=== PATIENT | male | born 1970 | race African-American/Black ===

== ENCOUNTER 2018-02-02 10:09 | Inpatient (IN) | payer OTHER ==
[2018-02-02 10:38] VITALS: BMI 25.4
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
[2018-02-02] MEDS ORDERED: P-EPHED 60MG/TRIPROLIDI 2.5MG TABLET PO PRN (15:08)
[2018-02-02] MEDS ORDERED: MAGNESIUM HYDROX 2400MG/30ML ORAL SUSPENSION 30 ML CUP PO PRN (15:08)
[2018-02-02] MEDS ORDERED: LOPERAMIDE HCL 2 MG CAPSULE PO PRN (15:08)
[2018-02-02] MEDS ORDERED: hydrOXYzine PAMOATE 50 MG CAPSULE (FP) PO PRN (15:08)
[2018-02-02] MEDS ORDERED: MAGNESIUM CITRATE 300 ML BOTTLE PO PRN (15:08)
[2018-02-02] MEDS ORDERED: MAG HYDROX/AL HYDROX/SIMETH 30 ML UNIT-DOSE CUP PO PRN (15:08)
[2018-02-02] MEDS ORDERED: MENTHOL/PHENOL 1 EACH UD MM PRN (15:08)
[2018-02-02] MEDS ORDERED: ACETAMINOPHEN 325 MG TABLET (FP) PO PRN (15:08)
[2018-02-02] MEDS ORDERED: chlordiazePOXIDE HCL 25 MG CAPSULE PO PRN (15:08)
[2018-02-02] MEDS ORDERED: guaiFENesin/D-METHORPHAN HB 10 ML UNIT-DOSE CUPS PO PRN (15:08)
[2018-02-02] MEDS ORDERED: NICOTINE POLACRILEX 2 MG GUM BC PRN (15:08)
[2018-02-02] MEDS: chlordiazePOXIDE HCL 25 MG CAPSULE PO SCH ×2 (18:14→22:13)
[2018-02-02] MEDS: NICOTINE 14 MG/24 HOURS TOPICAL PATCH TD SCH (18:17)
[2018-02-02 19:02] LABS: HEMATOCRIT 34.8 % (35.4-49); HEMOGLOBIN 11.2 GM/dL (11.7-16.9); MCHC 32.2 g/dl (32.0-35.9); MEAN CELL VOLUME 80.8 fl (80-96); MEAN PLT VOLUME 8.8 fl (7.5-11.1); PLATELET COUNT 431 K/MM3 (134-434); RDW 20.9 % (11.9-15.9); WHITE BLOOD COUNT 6.8 K/mm3 (4.0-10.0)
[2018-02-02 19:10] LABS: ALBUMIN 3.4 g/dl (3.4-5.0); ANION GAP 8 (8-16); BLOOD UREA NITROGEN 7 mg/dL (7-18); CALCIUM 8.5 mg/dL (8.5-10.1); CHLORIDE 105 mmol/L (98-107); CO2 27 mmol/L (21-32); CREATININE 1.2 mg/dL (0.7-1.3); GLUCOSE,RANDOM 163 mg/dL (74-106); POTASSIUM 4.8 mmol/L (3.5-5.1); SGOT/AST 98 U/L (15-37); SGPT/ALT 58 U/L (12-78); SODIUM 140 mmol/L (136-145)
[2018-02-02 19:17] LABS: ALK PHOS 93 U/L (45-117); BILIRUBIN,TOTAL 0.2 mg/dL (0.2-1.0); TOT PROT 8.9 g/dl (6.4-8.2)
[2018-02-02] MEDS: SILVER SULFADIAZINE 1% TOP CREAM 50 GM JAR TP SCH (20:12)
[2018-02-02 21:46] LABS: SICKLE CELL SCREEN NEGATIVE (NEGATIVE)
[2018-02-02] MEDS ORDERED: MELATONIN 5 MG TABLETS PO PRN (22:00)
[2018-02-02] MEDS: THIAMINE HCL 100 MG TABLET (FP) PO SCH (22:13)
[2018-02-03] MEDS: chlordiazePOXIDE HCL 25 MG CAPSULE PO SCH ×4 (06:41→22:10)
[2018-02-03] MEDS: SILVER SULFADIAZINE 1% TOP CREAM 50 GM JAR TP SCH (10:15)
[2018-02-03] MEDS: PRENATAL VITAMINS W/ FOLIC ACID TABLET (FP) PO SCH (10:15)
[2018-02-03] MEDS: NICOTINE 14 MG/24 HOURS TOPICAL PATCH TD SCH (10:16)
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
--- NOTE | 2018-02-03 12:29 | PN ---
S CIWA - CIWA Score Nausea/Vomitin-No Nausea/No Vomiting Muscle Tremors: 3 Anxiety: 4-Mod. Anxious/Guarded Agitation: 2 Paroxysmal Sweats: 3 Orientation: 0-Oriented Tacttile Disturbances: 2-Mild Itch/Numbness/Burn Auditory Disturbances: 0-None Visual Disturbances: 2-Mild Sensitivity Headache: 0-None Present CIWA-Ar Total Score: 16 BHS Progress Note (SOAP) Subjective: Interrupted Sleep, Anxious, Constipation, Sweating. Objective: PATIENT A & O X 3, OBSERVED AMBULATING ON UNIT. NO ACUTE DISTRESS. 02/03/18 12:26 Vital Signs Temperature 98.4 F 02/03/18 09:17 Pulse Rate 72 02/03/18 11:00 Respiratory Rate 18 02/03/18 11:00 Blood Pressure 124/79 02/03/18 09:17 O2 Sat by Pulse Oximetry (%) Laboratory Tests 02/02/18 02/02/18 15:00 15:00 WBC 6.8 RBC 4.30 Hgb 11.2 L Hct 34.8 L MCV 80.8 MCH 26.0 MCHC 32.2 RDW 20.9 H Plt Count 431 MPV 8.8 Sickle Cell Screen Negative Sodium 140 Potassium 4.8 Chloride 105 Carbon Dioxide 27 Anion Gap 8 BUN 7 Creatinine 1.2 Creat Clearance w eGFR > 60 Random Glucose 163 H Calcium 8.5 Total Bilirubin 0.2 AST 98 H ALT 58 Alkaline Phosphatase 93 Total Protein 8.9 H Albumin 3.4 LABS NOTED. RPR, UA RESULTS PENDING. 02/03/18 12:28 Assessment: 02/03/18 12:28 WITHDRAWAL SYMPTOMS. Plan: CONTINUE DETOX. INCREASE DAILY PO FLUID INTAKE.
--- NOTE | 2018-02-03 14:32 | EKG ---
Test Reason : Blood Pressure : / mmHG Vent. Rate : 057 BPM Atrial Rate : 057 BPM P-R Int : 126 ms QRS Dur : 086 ms QT Int : 422 ms P-R-T Axes : 047 070 072 degrees QTc Int : 410 ms SINUS BRADYCARDIA OTHERWISE NORMAL ECG NO PREVIOUS ECGS AVAILABLE Confirmed by VAMSI OLIVER, NOELLE ([id number]) on 02/03/2018 2:32:39 PM Referred By: Confirmed By:NOELLE AGUSTIN MD
[2018-02-03] MEDS: THIAMINE HCL 100 MG TABLET (FP) PO SCH (22:10)
[2018-02-03] MEDS: IBUPROFEN 400 MG TABLET (FP) PO PRN (22:12)
[2018-02-03] MEDS: ZOLPIDEM TARTRATE 10 MG TABLET (PARK CARE ONLY) PO PRN (22:12)
[2018-02-03 23:43] LABS: URINE APPEARANCE CLEAR; URINE BILIRUBIN NEGATIVE (<2.0 mg/dL); URINE COLOR STRAW; URINE GLUCOSE (UA) NEGATIVE (NEGATIVE); URINE KETONE NEGATIVE (NEGATIVE); URINE NITRITE NEGATIVE (NEGATIVE); URINE PROTEIN NEGATIVE (NEGATIVE); URINE UROBILINOGEN NEGATIVE mg/dL (0.2-1.0)
[2018-02-03 23:44] LABS: URINE LEUK ESTERASE 1+ (NEGATIVE)
[2018-02-04] MEDS: chlordiazePOXIDE HCL 25 MG CAPSULE PO SCH ×2 (05:56→10:44)
[2018-02-04] MEDS: SILVER SULFADIAZINE 1% TOP CREAM 50 GM JAR TP SCH (10:44)
[2018-02-04] MEDS: NICOTINE 14 MG/24 HOURS TOPICAL PATCH TD SCH (10:44)
[2018-02-04] MEDS: PRENATAL VITAMINS W/ FOLIC ACID TABLET (FP) PO SCH (10:44)
--- NOTE | 2018-02-04 10:47 | PN ---
Psychiatric Progress Note Vital Signs: Vital Signs Period Temp Pulse Resp BP Sys/Worthy Pulse Ox Last 24 Hr 96.2 F-97.8 F 57-94 16-20 120-144/67-95 Date of Session: 02/04/18 Chief Complaint:: Insomnia HPI: Patient reports insomnia inspite of taking [id number] po qgs prn. Patient reports good response on Seroquel 100mg po qhs prior to admission Current Medications: Active Medications Generic Name Dose Route Start Last Admin Trade Name Freq PRN Reason Stop Dose Admin Acetaminophen 650 mg 02/02/18 15:08 02/03/18 10:15 Tylenol - PO 650 mg Q4H PRN Administration FEVER Al Hydroxide/Mg Hydroxide 30 ml 02/02/18 15:08 Mylanta Oral Suspension - PO Q6H PRN DYSPEPSIA Chlordiazepoxide HCl 25 mg 02/03/18 17:00 02/04/18 05:56 Librium - PO 02/04/18 11:01 25 mg [id number] IDALMIS Administration Chlordiazepoxide HCl 15 mg 02/04/18 17:00 Librium - PO 02/05/18 11:01 [id number] IDALMIS Chlordiazepoxide HCl 25 mg 02/02/18 15:08 Librium - PO 02/05/18 15:07 Q4H PRN WITHDRAWAL(CONT SUBST) Chlordiazepoxide HCl 10 mg 02/05/18 17:00 Librium - PO 02/06/18 11:01 [id number] IDALMIS Eucalyptus/Menthol/Phenol/Sorbitol 1 each 02/02/18 15:08 Cepastat Lozenge - MM Q4H PRN SORE THROAT Guaifenesin 10 ml 02/02/18 15:08 Robitussin Dm - PO Q6H PRN COUGH Hydroxyzine Pamoate 50 mg 02/02/18 15:08 Vistaril - PO Q4H PRN AGITATION Ibuprofen 400 mg 02/02/18 15:08 02/03/18 22:12 Motrin - PO 400 mg Q6H PRN Administration PAIN LEVEL 4-6 Loperamide HCl 4 mg 02/02/18 15:08 Imodium - PO Q6H PRN DIARRHEA Magnesium Citrate 300 ml 02/02/18 15:08 Citroma - PO Q48H PRN CONSTIPATION Magnesium Hydroxide 30 ml 02/02/18 15:08 Milk Of Magnesia - PO DAILY PRN CONSTIPATION Melatonin 5 mg 02/02/18 22:00 Melatonin PO HS PRN INSOMNIA Nicotine 14 mg 02/02/18 16:30 02/03/18 10:16 Nicoderm Patch - TD 14 mg DAILY IDALMIS Administration Nicotine Polacrilex 2 mg 02/02/18 15:08 Nicorette Gum - BC Q2H PRN NICOTINE REPLACEMENT RX Multivit/Folic Acid/Iron 1 tab 02/03/18 10:00 02/03/18 10:15 Vitamins (Sjr) - PO 1 tab DAILY IDALMIS Administration Pseudoephedrine/Triprolidine 1 combo 02/02/18 15:08 Actifed - PO TID PRN NASAL CONGESTION Quetiapine Fumarate 100 mg 02/04/18 22:00 Seroquel - PO HS IDALMIS Silver Sulfadiazine 1 applic 02/02/18 17:30 02/03/18 10:15 Silvadene - TP 1 applic DAILY IDALMIS Administration Thiamine HCl 100 mg 02/02/18 22:00 02/03/18 22:10 Vitamin B1 - PO 100 mg HS IDALMIS Administration Zolpidem Tartrate 10 mg 02/03/18 22:00 02/03/18 22:12 Ambien - PO 02/06/18 21:59 10 mg HS PRN Administration INSOMNIA Provider note:: Patient started on Seroquel 100mg po qhs Mental Status Exam - Mental Status Exam Alert and Oriented to: Place, Person Cognitive Function: Fair Patient Appearance: Unkempt Mood: Anxious Affect: Mood Congruent Patient Behavior: Cooperative Speech Pattern: Appropriate Voice Loudness: Normal Thought Process: Goal Oriented Thought Disorder: Being Controlled Hallucinations: Denies Suicidal Ideation: Denies Homicidal Ideation: Denies Insight/Judgement: Fair Sleep: Difficulty falling asleep Appetite: Fair Muscle strength/Tone: Normal Gait/Station: Normal Additional Comments: Seroquel 100mg po qhs Psychiatric Treatment Plan - Problem List (1) Alcohol induced insomnia Current Visit: Yes (2) Alcohol dependence with uncomplicated withdrawal Current Visit: Yes (3) Insomnia Current Visit: Yes (4) PCP dependence Current Visit: Yes Initial treatment plan: Seroquel 100mg po qhs
[2018-02-04] MEDS ORDERED: chlordiazePOXIDE HCL 25 MG CAPSULE PO ONE (13:30)
--- NOTE | 2018-02-04 14:23 | PN ---
[facility] CIWA - CIWA Score Nausea/Vomitin-No Nausea/No Vomiting Muscle Tremors: 3 Anxiety: 3 Agitation: 4-Moderately Restless Paroxysmal Sweats: No Perspiration Orientation: 0-Oriented Tacttile Disturbances: 2-Mild Itch/Numbness/Burn Auditory Disturbances: 1-Very Mild Visual Disturbances: 1-Very Mild Sensitivity Headache: 0-None Present CIWA-Ar Total Score: 14 S Progress Note (SOAP) Subjective: Interrupted Sleep, Body Aches, Tremors. Objective: PATIENT A & O X 3, OBSERVED AMBULATING ON UNIT. NO ACUTE DISTRESS. WOUND (CHRONIC) ON PATIENT'S LOWER ABDOMEN VIEWED. NO BLEEDING OR, UNUSUAL DISCHARGE NOTED. 02/04/18 14:20 Vital Signs Temperature 96.1 F L 02/04/18 13:23 Pulse Rate 76 02/04/18 13:23 Respiratory Rate 18 02/04/18 13:23 Blood Pressure 130/70 02/04/18 13:23 O2 Sat by Pulse Oximetry (%) Laboratory Tests 02/02/18 02/02/18 02/02/18 15:00 15:00 15:00 WBC 6.8 RBC 4.30 Hgb 11.2 L Hct 34.8 L MCV 80.8 MCH 26.0 MCHC 32.2 RDW 20.9 H Plt Count 431 MPV 8.8 Sickle Cell Screen Negative Sodium 140 Potassium 4.8 Chloride 105 Carbon Dioxide 27 Anion Gap 8 BUN 7 Creatinine 1.2 Creat Clearance w eGFR > 60 POC Glucometer Random Glucose 163 H Calcium 8.5 Total Bilirubin 0.2 AST 98 H ALT 58 Alkaline Phosphatase 93 Total Protein 8.9 H Albumin 3.4 Urine Color Urine Appearance Urine pH Ur Specific [place] Urine Protein Urine Glucose (UA) Urine Ketones Urine Blood Urine Nitrite Urine Bilirubin Urine Urobilinogen Ur Leukocyte Esterase Urine WBC (Auto) Urine RBC (Auto) RPR Titer Nonreactive 02/02/18 02/04/18 16:00 05:55 WBC RBC Hgb Hct MCV MCH MCHC RDW Plt Count MPV Sickle Cell Screen Sodium Potassium Chloride Carbon Dioxide Anion Gap BUN Creatinine Creat Clearance w eGFR POC Glucometer 97 Random Glucose Calcium Total Bilirubin AST ALT Alkaline Phosphatase Total Protein Albumin Urine Color Straw Urine Appearance Clear Urine pH 5.0 Ur Specific [place] 1.003 Urine Protein Negative Urine Glucose (UA) Negative Urine Ketones Negative Urine Blood Negative Urine Nitrite Negative Urine Bilirubin Negative Urine Urobilinogen Negative Ur Leukocyte Esterase 1+ H Urine WBC (Auto) 2 Urine RBC (Auto) None RPR Titer LABS NOTED. 02/04/18 14:21 Assessment: 02/04/18 14:21 WITHDRAWAL SYMPTOMS. Plan: CONTINUE DETOX. CONTINUE WOUND CARE OF ABDOMEN DIRECTED. INCREASE DAILY PO FLUID INTAKE.
[2018-02-04] MEDS: chlordiazePOXIDE 5 MG CAPSULE PO SCH ×2 (17:21→22:07)
[2018-02-04] MEDS: ZOLPIDEM TARTRATE 10 MG TABLET (PARK CARE ONLY) PO PRN (22:08)
[2018-02-04] MEDS: QUEtiapine FUMARATE 100 MG TABLET (FP) PO SCH (22:08)
[2018-02-04] MEDS: THIAMINE HCL 100 MG TABLET (FP) PO SCH (22:10)
[2018-02-04] MEDS: IBUPROFEN 400 MG TABLET (FP) PO PRN (22:11)
[2018-02-05] MEDS: chlordiazePOXIDE 5 MG CAPSULE PO SCH ×2 (05:32→10:27)
[2018-02-05] MEDS: NICOTINE 14 MG/24 HOURS TOPICAL PATCH TD SCH (10:27)
[2018-02-05] MEDS: PRENATAL VITAMINS W/ FOLIC ACID TABLET (FP) PO SCH (10:27)
[2018-02-05] MEDS: SILVER SULFADIAZINE 1% TOP CREAM 50 GM JAR TP SCH (10:32)
--- NOTE | 2018-02-05 16:45 | PN ---
BHS Progress Note (SOAP) Subjective: Fatigue, Body Aches. Objective: PATIENT A & O X 3, OBSERVED AMBULATING ON UNIT. NO ACUTE DISTRESS. 02/05/18 16:43 Vital Signs Temperature 96.1 F L 02/05/18 13:14 Pulse Rate 69 02/05/18 13:14 Respiratory Rate 18 02/05/18 13:14 Blood Pressure 139/77 02/05/18 13:14 O2 Sat by Pulse Oximetry (%) Laboratory Tests 02/02/18 02/02/18 02/02/18 15:00 15:00 15:00 WBC 6.8 RBC 4.30 Hgb 11.2 L Hct 34.8 L MCV 80.8 MCH 26.0 MCHC 32.2 RDW 20.9 H Plt Count 431 MPV 8.8 Sickle Cell Screen Negative Sodium 140 Potassium 4.8 Chloride 105 Carbon Dioxide 27 Anion Gap 8 BUN 7 Creatinine 1.2 Creat Clearance w eGFR > 60 POC Glucometer Random Glucose 163 H Calcium 8.5 Total Bilirubin 0.2 AST 98 H ALT 58 Alkaline Phosphatase 93 Total Protein 8.9 H Albumin 3.4 Urine Color Urine Appearance Urine pH Ur Specific [place] Urine Protein Urine Glucose (UA) Urine Ketones Urine Blood Urine Nitrite Urine Bilirubin Urine Urobilinogen Ur Leukocyte Esterase Urine WBC (Auto) Urine RBC (Auto) RPR Titer Nonreactive 02/02/18 02/04/18 02/05/18 16:00 05:55 05:35 WBC RBC Hgb Hct MCV MCH MCHC RDW Plt Count MPV Sickle Cell Screen Sodium Potassium Chloride Carbon Dioxide Anion Gap BUN Creatinine Creat Clearance w eGFR POC Glucometer 97 124 Random Glucose Calcium Total Bilirubin AST ALT Alkaline Phosphatase Total Protein Albumin Urine Color Straw Urine Appearance Clear Urine pH 5.0 Ur Specific [place] 1.003 Urine Protein Negative Urine Glucose (UA) Negative Urine Ketones Negative Urine Blood Negative Urine Nitrite Negative Urine Bilirubin Negative Urine Urobilinogen Negative Ur Leukocyte Esterase 1+ H Urine WBC (Auto) 2 Urine RBC (Auto) None RPR Titer LABS NOTED. Assessment: 02/05/18 16:44 WITHDRAWAL SYMPTOMS. Plan: CONTINUE DETOX. PATIENT SCHEDULED FOR D/C TOMORROW.
[2018-02-05] MEDS: chlordiazePOXIDE HCL 10 MG CAPSULE PO SCH ×2 (17:37→22:12)
[2018-02-05] MEDS: IBUPROFEN 400 MG TABLET (FP) PO PRN (17:38)
[2018-02-05] MEDS: ZOLPIDEM TARTRATE 10 MG TABLET (PARK CARE ONLY) PO PRN (22:12)
[2018-02-05] MEDS: QUEtiapine FUMARATE 100 MG TABLET (FP) PO SCH (22:12)
[2018-02-05] MEDS: THIAMINE HCL 100 MG TABLET (FP) PO SCH (22:12)
[2018-02-06] MEDS: chlordiazePOXIDE HCL 10 MG CAPSULE PO SCH ×2 (05:31→10:19)
[2018-02-06] MEDS: IBUPROFEN 400 MG TABLET (FP) PO PRN (05:32)
[2018-02-06 06:08] VITALS: BP 109/68; PULSE 64; TEMP 97.2
[2018-02-06] MEDS: NICOTINE 14 MG/24 HOURS TOPICAL PATCH TD SCH (10:18)
[2018-02-06] MEDS: SILVER SULFADIAZINE 1% TOP CREAM 50 GM JAR TP SCH (10:18)
[2018-02-06] MEDS: PRENATAL VITAMINS W/ FOLIC ACID TABLET (FP) PO SCH (10:18)
--- NOTE | 2018-02-06 17:16 | PN ---
BHS Progress Note (SOAP) Subjective: Patient denies current Detox symptoms and reports that he feels well overall. Objective: PATIENT A & O X 3, OBSERVED AMBULATING ON UNIT. NO ACUTE DISTRESS. 02/06/18 17:15 Vital Signs Temperature 97.2 F L 02/06/18 06:07 Pulse Rate 64 02/06/18 06:07 Respiratory Rate 20 02/06/18 06:07 Blood Pressure 109/68 02/06/18 06:07 O2 Sat by Pulse Oximetry (%) Laboratory Tests 02/02/18 02/02/18 02/02/18 15:00 15:00 15:00 WBC 6.8 RBC 4.30 Hgb 11.2 L Hct 34.8 L MCV 80.8 MCH 26.0 MCHC 32.2 RDW 20.9 H Plt Count 431 MPV 8.8 Sickle Cell Screen Negative Sodium 140 Potassium 4.8 Chloride 105 Carbon Dioxide 27 Anion Gap 8 BUN 7 Creatinine 1.2 Creat Clearance w eGFR > 60 POC Glucometer Random Glucose 163 H Calcium 8.5 Total Bilirubin 0.2 AST 98 H ALT 58 Alkaline Phosphatase 93 Total Protein 8.9 H Albumin 3.4 Urine Color Urine Appearance Urine pH Ur Specific [place] Urine Protein Urine Glucose (UA) Urine Ketones Urine Blood Urine Nitrite Urine Bilirubin Urine Urobilinogen Ur Leukocyte Esterase Urine WBC (Auto) Urine RBC (Auto) RPR Titer Nonreactive 02/02/18 02/04/18 02/05/18 16:00 05:55 05:35 WBC RBC Hgb Hct MCV MCH MCHC RDW Plt Count MPV Sickle Cell Screen Sodium Potassium Chloride Carbon Dioxide Anion Gap BUN Creatinine Creat Clearance w eGFR POC Glucometer 97 124 Random Glucose Calcium Total Bilirubin AST ALT Alkaline Phosphatase Total Protein Albumin Urine Color Straw Urine Appearance Clear Urine pH 5.0 Ur Specific [place] 1.003 Urine Protein Negative Urine Glucose (UA) Negative Urine Ketones Negative Urine Blood Negative Urine Nitrite Negative Urine Bilirubin Negative Urine Urobilinogen Negative Ur Leukocyte Esterase 1+ H Urine WBC (Auto) 2 Urine RBC (Auto) None RPR Titer 02/06/18 05:49 WBC RBC Hgb Hct MCV MCH MCHC RDW Plt Count MPV Sickle Cell Screen Sodium Potassium Chloride Carbon Dioxide Anion Gap BUN Creatinine Creat Clearance w eGFR POC Glucometer 108 Random Glucose Calcium Total Bilirubin AST ALT Alkaline Phosphatase Total Protein Albumin Urine Color Urine Appearance Urine pH Ur Specific [place] Urine Protein Urine Glucose (UA) Urine Ketones Urine Blood Urine Nitrite Urine Bilirubin Urine Urobilinogen Ur Leukocyte Esterase Urine WBC (Auto) Urine RBC (Auto) RPR Titer LABS NOTED. Assessment: 02/06/18 17:16 COMPLETION OF DETOX REGIMEN. Plan: PATIENT SCHEDULED FOR DISCHARGE FROM DETOX UNIT TODAY.
--- NOTE | 2018-02-06 17:19 | DS ---
[facility] Detox Discharge Summary Admission Date: 02/02/18 Discharge Date: 02/06/18 - History Present History: Alcohol Dependence, Pcp Dependence Additional Comments: PATIENT [id number] TO [facility] ([place] FOR AFTERCARE. PATIENT WAS DISCHARGED FROM DETOX UNIT IN STABLE MEDICAL CONDITION. Pertinent Past History: Open Abdominal Wall Wound, History of Umbilical Hernia, Insomnia. - Physical Exam Results Vital Signs: Vital Signs Temperature 97.2 F L 02/06/18 06:07 Pulse Rate 64 02/06/18 06:07 Respiratory Rate 20 02/06/18 06:07 Blood Pressure 109/68 02/06/18 06:07 O2 Sat by Pulse Oximetry (%) Pertinent Admission Physical Exam Findings: WITHDRAWAL SYMPTOMS. Laboratory Tests 02/02/18 02/02/18 02/02/18 15:00 15:00 15:00 WBC 6.8 RBC 4.30 Hgb 11.2 L Hct 34.8 L MCV 80.8 MCH 26.0 MCHC 32.2 RDW 20.9 H Plt Count 431 MPV 8.8 Sickle Cell Screen Negative Sodium 140 Potassium 4.8 Chloride 105 Carbon Dioxide 27 Anion Gap 8 BUN 7 Creatinine 1.2 Creat Clearance w eGFR > 60 POC Glucometer Random Glucose 163 H Calcium 8.5 Total Bilirubin 0.2 AST 98 H ALT 58 Alkaline Phosphatase 93 Total Protein 8.9 H Albumin 3.4 Urine Color Urine Appearance Urine pH Ur Specific [place] Urine Protein Urine Glucose (UA) Urine Ketones Urine Blood Urine Nitrite Urine Bilirubin Urine Urobilinogen Ur Leukocyte Esterase Urine WBC (Auto) Urine RBC (Auto) RPR Titer Nonreactive 02/02/18 02/04/18 02/05/18 16:00 05:55 05:35 WBC RBC Hgb Hct MCV MCH MCHC RDW Plt Count MPV Sickle Cell Screen Sodium Potassium Chloride Carbon Dioxide Anion Gap BUN Creatinine Creat Clearance w eGFR POC Glucometer 97 124 Random Glucose Calcium Total Bilirubin AST ALT Alkaline Phosphatase Total Protein Albumin Urine Color Straw Urine Appearance Clear Urine pH 5.0 Ur Specific [place] 1.003 Urine Protein Negative Urine Glucose (UA) Negative Urine Ketones Negative Urine Blood Negative Urine Nitrite Negative Urine Bilirubin Negative Urine Urobilinogen Negative Ur Leukocyte Esterase 1+ H Urine WBC (Auto) 2 Urine RBC (Auto) None RPR Titer 02/06/18 05:49 WBC RBC Hgb Hct MCV MCH MCHC RDW Plt Count MPV Sickle Cell Screen Sodium Potassium Chloride Carbon Dioxide Anion Gap BUN Creatinine Creat Clearance w eGFR POC Glucometer 108 Random Glucose Calcium Total Bilirubin AST ALT Alkaline Phosphatase Total Protein Albumin Urine Color Urine Appearance Urine pH Ur Specific [place] Urine Protein Urine Glucose (UA) Urine Ketones Urine Blood Urine Nitrite Urine Bilirubin Urine Urobilinogen Ur Leukocyte Esterase Urine WBC (Auto) Urine RBC (Auto) RPR Titer LABS NOTED. - Treatment Hospital Course: Detox Protocol Followed, Detoxed Safely, Responded well, Discharged Condition Good Patient has Accepted a Rehab Referral to: PT. [facility] ([place] - Medication Discharge Medications: Ambulatory Orders Quetiapine Fumarate [Seroquel] 100 mg PO HS #30 tablet 02/04/18 - Diagnosis (1) Alcohol dependence with uncomplicated withdrawal Status: Acute (2) PCP dependence Status: Acute (3) Open abdominal wall wound Status: Chronic Qualifiers: Encounter type: sequela Qualified Code(s): S31.109S - Unspecified open wound of abdominal wall, unspecified quadrant without penetration into peritoneal cavity, sequela (4) Umbilical hernia Status: Chronic Qualifiers: Obstruction and gangrene presence: without obstruction or gangrene Qualified Code(s): K42.9 - Umbilical hernia without obstruction or gangrene (5) Insomnia Status: Acute Qualifiers: Insomnia type: unspecified Qualified Code(s): G47.00 - Insomnia, unspecified - AMA Did Patient Leave Against Medical Advice: No
== END 2018-02-06 09:10 | disposition home or self-care (01) | DRG 775 ==
LOC: YASAS 10:09 → Y3N 16:03
PROVIDERS: ADMIT Internal Medicine; ATTEND Internal Medicine
PROC: HZ2ZZZZ Detoxification Services for Substance Abuse Treatment (ICD-10-PCS; principal; 2018-02-02)
DX: F10.230 Alcohol dependence with withdrawal, uncomplicated (principal); F16.20 Hallucinogen dependence, uncomplicated; F10.282 Alcohol dependence with alcohol-induced sleep disorder; G47.00 Insomnia, unspecified; K42.9 Umbilical hernia without obstruction or gangrene; I10 Essential (primary) hypertension; S31.109S Unspecified open wound of abdominal wall, unspecified quadrant without penetration into peritoneal cavity, sequela; V89.2XXS Person injured in unspecified motor-vehicle accident, traffic, sequela
CPT/HCPCS: 36415; 80053; 81003; 81015; 82962; 85027; 85660; 86593; 93005; 93010

== ENCOUNTER 2018-03-29 15:27 | Inpatient (IN) | payer OTHER ==
--- NOTE | 2018-03-29 16:50 | PN ---
[facility] Progress Note Note: Admitted to rehab after discharge from [facility] detox. Alert and oriented. Denies withdrawal symptoms. Abdomen has three soft, non-tender, reducible hernia areas. At the intersecting areas of the hernias is a mid-abdominal lesion approximated 2.5" vertical by 1.5" horizontal. Lesion is open w/ pink granulation tissue on outer edges and dry darker pink scab-like inner center. No exudate. Will continue silvadene cream to lesion and dry dressings. Admission rehab orders and bactrim order completed.
[2018-03-29] MEDS ORDERED: NICOTINE POLACRILEX 2 MG GUM BUC PRN (16:52)
[2018-03-29] MEDS ORDERED: P-EPHED 60MG/TRIPROLIDI 2.5MG TABLET PO PRN (16:52)
[2018-03-29] MEDS ORDERED: guaiFENesin/D-METHORPHAN HB 10 ML UNIT-DOSE CUPS PO PRN (16:52)
[2018-03-29] MEDS ORDERED: MENTHOL/PHENOL 1 EACH UD MM PRN (16:52)
[2018-03-29] MEDS ORDERED: MAGNESIUM CITRATE 300 ML BOTTLE PO PRN (16:52)
[2018-03-29] MEDS ORDERED: MAGNESIUM HYDROX 2400MG/30ML ORAL SUSPENSION 30 ML CUP PO PRN (16:52)
[2018-03-29] MEDS ORDERED: ACETAMINOPHEN 325 MG TABLET (FP) PO PRN (16:52)
[2018-03-29] MEDS ORDERED: MAG HYDROX/AL HYDROX/SIMETH 30 ML UNIT-DOSE CUP PO PRN (16:52)
[2018-03-29] MEDS ORDERED: LOPERAMIDE HCL 2 MG CAPSULE PO PRN (16:52)
--- NOTE | 2018-03-29 17:13 | PN ---
[facility] Progress Note Note: Psychiatry Attending's note : Called to enter order for seroquel. For Gumaro Parkinson, 47 y/o male. Transferred from [address] [place] [address]. Chart reviewed. Notes from ANITRA Quinn + Dr Shepard : Read and appreciated.Seroquel is confirmed. Continuity of care with : Seroquel 100 mg po hs.Ordered. Unit psychiatrist will follow in AM.
[2018-03-29 20:36] VITALS: BMI 24.8
[2018-03-29] MEDS: THIAMINE HCL 100 MG TABLET (FP) PO SCH (21:16)
[2018-03-29] MEDS: IBUPROFEN 400 MG TABLET (FP) PO PRN (21:17)
[2018-03-29] MEDS: SULFAMETHOXAZOLE/TRIMETHOPRIM 800MG/160MG D.S. TABLET PO SCH (21:17)
[2018-03-29] MEDS: SILVER SULFADIAZINE 1% TOP CREAM 400 GM JAR TP SCH (21:18)
[2018-03-29] MEDS ORDERED: QUEtiapine FUMARATE 100 MG TABLET (FP) PO SCH (22:00)
[2018-03-29] MEDS ORDERED: cloNIDine HCL 0.1 MG TABLET PO ONE (22:21)
--- NOTE | 2018-03-29 22:23 | PN ---
S Progress Note Note: Vital Signs - 24 hr 03/29/18 22:01 Pulse Rate 78 Blood Pressure 156/106 Patient with elevated diastolic BP, and c/o back pain. one time dose clonidine 0.1 mg stat felxeril PRN continue Ibuprofen PRN increase fluids continue to monitor
[2018-03-29] MEDS: CYCLOBENZAPRINE HCL 5 MG TABLET PO SCH (22:42)
[2018-03-30] MEDS: CYCLOBENZAPRINE HCL 5 MG TABLET PO SCH ×3 (06:21→21:37)
[2018-03-30] MEDS: PRENATAL VITAMINS W/ FOLIC ACID TABLET (FP) PO SCH (10:43)
[2018-03-30] MEDS: SULFAMETHOXAZOLE/TRIMETHOPRIM 800MG/160MG D.S. TABLET PO SCH ×2 (10:43→21:37)
[2018-03-30] MEDS: SILVER SULFADIAZINE 1% TOP CREAM 400 GM JAR TP SCH ×2 (10:43→21:40)
[2018-03-30] MEDS: NICOTINE 7 MG/24 HOURS TOPICAL PATCH TD SCH (10:43)
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
[2018-03-30] MEDS: THIAMINE HCL 100 MG TABLET (FP) PO SCH (21:37)
[2018-03-30] MEDS: QUEtiapine FUMARATE 200 MG TABLET PO SCH (21:38)
[2018-03-30] MEDS: IBUPROFEN 400 MG TABLET (FP) PO PRN (21:38)
[2018-03-31] MEDS: CYCLOBENZAPRINE HCL 5 MG TABLET PO SCH ×3 (06:51→21:41)
[2018-03-31] MEDS: IBUPROFEN 400 MG TABLET (FP) PO PRN ×2 (06:53→21:43)
[2018-03-31] MEDS: SILVER SULFADIAZINE 1% TOP CREAM 400 GM JAR TP SCH ×2 (10:37→21:44)
[2018-03-31] MEDS: PRENATAL VITAMINS W/ FOLIC ACID TABLET (FP) PO SCH (10:37)
[2018-03-31] MEDS: NICOTINE 7 MG/24 HOURS TOPICAL PATCH TD SCH (10:37)
[2018-03-31] MEDS: SULFAMETHOXAZOLE/TRIMETHOPRIM 800MG/160MG D.S. TABLET PO SCH ×2 (10:37→21:41)
[2018-03-31] MEDS: THIAMINE HCL 100 MG TABLET (FP) PO SCH (21:41)
[2018-03-31] MEDS: QUEtiapine FUMARATE 200 MG TABLET PO SCH (21:41)
[2018-03-31] MEDS: hydrOXYzine PAMOATE 50 MG CAPSULE (FP) PO PRN (21:43)
[2018-04-01] MEDS: CYCLOBENZAPRINE HCL 5 MG TABLET PO SCH ×3 (06:17→21:45)
[2018-04-01] MEDS: NICOTINE 7 MG/24 HOURS TOPICAL PATCH TD SCH (10:37)
[2018-04-01] MEDS: SULFAMETHOXAZOLE/TRIMETHOPRIM 800MG/160MG D.S. TABLET PO SCH ×2 (10:37→21:45)
[2018-04-01] MEDS: SILVER SULFADIAZINE 1% TOP CREAM 400 GM JAR TP SCH ×2 (10:38→21:46)
[2018-04-01] MEDS: PRENATAL VITAMINS W/ FOLIC ACID TABLET (FP) PO SCH (10:38)
[2018-04-01] MEDS: hydrOXYzine PAMOATE 50 MG CAPSULE (FP) PO PRN (10:39)
[2018-04-01] MEDS: QUEtiapine FUMARATE 200 MG TABLET PO SCH (21:45)
[2018-04-01] MEDS: THIAMINE HCL 100 MG TABLET (FP) PO SCH (21:45)
[2018-04-01] MEDS: MELATONIN 5 MG TABLETS PO PRN (21:46)
[2018-04-02] MEDS: CYCLOBENZAPRINE HCL 5 MG TABLET PO SCH ×3 (06:37→21:52)
[2018-04-02] MEDS: SULFAMETHOXAZOLE/TRIMETHOPRIM 800MG/160MG D.S. TABLET PO SCH ×2 (10:34→21:52)
[2018-04-02] MEDS: PRENATAL VITAMINS W/ FOLIC ACID TABLET (FP) PO SCH (10:34)
[2018-04-02] MEDS: NICOTINE 7 MG/24 HOURS TOPICAL PATCH TD SCH (10:34)
[2018-04-02] MEDS: SILVER SULFADIAZINE 1% TOP CREAM 400 GM JAR TP SCH ×2 (10:34→21:53)
[2018-04-02] MEDS: QUEtiapine FUMARATE 200 MG TABLET PO SCH (21:52)
[2018-04-02] MEDS: THIAMINE HCL 100 MG TABLET (FP) PO SCH (21:52)
[2018-04-02] MEDS: hydrOXYzine PAMOATE 50 MG CAPSULE (FP) PO PRN (21:54)
[2018-04-02] MEDS: MELATONIN 5 MG TABLETS PO PRN (21:54)
[2018-04-03] MEDS: CYCLOBENZAPRINE HCL 5 MG TABLET PO SCH ×3 (06:36→21:55)
[2018-04-03] MEDS: NICOTINE 7 MG/24 HOURS TOPICAL PATCH TD SCH (10:32)
[2018-04-03] MEDS: SULFAMETHOXAZOLE/TRIMETHOPRIM 800MG/160MG D.S. TABLET PO SCH ×2 (10:32→21:54)
[2018-04-03] MEDS: PRENATAL VITAMINS W/ FOLIC ACID TABLET (FP) PO SCH (10:32)
[2018-04-03] MEDS: SILVER SULFADIAZINE 1% TOP CREAM 400 GM JAR TP SCH ×2 (10:33→22:11)
[2018-04-03] MEDS: THIAMINE HCL 100 MG TABLET (FP) PO SCH (21:54)
[2018-04-03] MEDS: QUEtiapine FUMARATE 200 MG TABLET PO SCH (21:54)
[2018-04-03] MEDS: MELATONIN 5 MG TABLETS PO PRN (21:56)
[2018-04-04] MEDS: CYCLOBENZAPRINE HCL 5 MG TABLET PO SCH ×3 (06:28→21:40)
[2018-04-04] MEDS: NICOTINE 7 MG/24 HOURS TOPICAL PATCH TD SCH (10:29)
[2018-04-04] MEDS: SULFAMETHOXAZOLE/TRIMETHOPRIM 800MG/160MG D.S. TABLET PO SCH ×2 (10:29→21:40)
[2018-04-04] MEDS: PRENATAL VITAMINS W/ FOLIC ACID TABLET (FP) PO SCH (10:29)
[2018-04-04] MEDS: SILVER SULFADIAZINE 1% TOP CREAM 400 GM JAR TP SCH ×2 (10:30→22:41)
[2018-04-04] MEDS: THIAMINE HCL 100 MG TABLET (FP) PO SCH (21:40)
[2018-04-04] MEDS: QUEtiapine FUMARATE 200 MG TABLET PO SCH (21:40)
[2018-04-05] MEDS: CYCLOBENZAPRINE HCL 5 MG TABLET PO SCH ×3 (06:52→21:43)
[2018-04-05] MEDS: SULFAMETHOXAZOLE/TRIMETHOPRIM 800MG/160MG D.S. TABLET PO SCH ×2 (10:18→21:43)
[2018-04-05] MEDS: NICOTINE 7 MG/24 HOURS TOPICAL PATCH TD SCH (10:18)
[2018-04-05] MEDS: PRENATAL VITAMINS W/ FOLIC ACID TABLET (FP) PO SCH (10:18)
[2018-04-05] MEDS: SILVER SULFADIAZINE 1% TOP CREAM 400 GM JAR TP SCH ×2 (10:19→21:45)
[2018-04-05] MEDS: QUEtiapine FUMARATE 200 MG TABLET PO SCH (21:43)
[2018-04-05] MEDS: THIAMINE HCL 100 MG TABLET (FP) PO SCH (21:43)
[2018-04-05] MEDS: MELATONIN 5 MG TABLETS PO PRN (21:43)
[2018-04-05] MEDS: IBUPROFEN 400 MG TABLET (FP) PO PRN (21:46)
[2018-04-06] MEDS: CYCLOBENZAPRINE HCL 5 MG TABLET PO SCH ×3 (06:44→21:46)
[2018-04-06] MEDS: PRENATAL VITAMINS W/ FOLIC ACID TABLET (FP) PO SCH (10:34)
[2018-04-06] MEDS: SILVER SULFADIAZINE 1% TOP CREAM 400 GM JAR TP SCH ×2 (10:34→21:47)
[2018-04-06] MEDS: NICOTINE 7 MG/24 HOURS TOPICAL PATCH TD SCH (10:35)
[2018-04-06] MEDS: SULFAMETHOXAZOLE/TRIMETHOPRIM 800MG/160MG D.S. TABLET PO SCH ×2 (10:35→21:46)
[2018-04-06] MEDS: THIAMINE HCL 100 MG TABLET (FP) PO SCH (21:46)
[2018-04-06] MEDS: QUEtiapine FUMARATE 200 MG TABLET PO SCH (21:46)
[2018-04-06] MEDS: MELATONIN 5 MG TABLETS PO PRN (21:46)
[2018-04-07] MEDS: CYCLOBENZAPRINE HCL 5 MG TABLET PO SCH ×3 (06:38→21:58)
[2018-04-07 07:24] VITALS: TEMP 97.7
[2018-04-07] MEDS: SILVER SULFADIAZINE 1% TOP CREAM 400 GM JAR TP SCH ×2 (10:25→22:04)
[2018-04-07] MEDS: SULFAMETHOXAZOLE/TRIMETHOPRIM 800MG/160MG D.S. TABLET PO SCH ×2 (10:25→21:58)
[2018-04-07] MEDS: NICOTINE 7 MG/24 HOURS TOPICAL PATCH TD SCH (10:26)
[2018-04-07] MEDS: PRENATAL VITAMINS W/ FOLIC ACID TABLET (FP) PO SCH (10:26)
--- NOTE | 2018-04-07 13:54 | PN ---
Psychiatric Progress Note Vital Signs: Vital Signs Period Temp Pulse Resp BP Sys/Worthy Pulse Ox Last 24 Hr 97.7 F 88 18-18 121/92 Date of Session: 04/07/18 Chief Complaint:: Discharge Note HPI: Patient addressing Alcohol and Phencyclidine Dependence comorbid with Nicotine Dependence, Substance-Induced Mood Disorder and Substance-Induced Sleep Disorder ROS: Blindness left eye, Umbilical Hernia Current Medications: Active Medications Generic Name Dose Route Start Last Admin Trade Name Freq PRN Reason Stop Dose Admin Acetaminophen 650 mg 03/29/18 16:52 Tylenol - PO Q4H PRN FEVER Al Hydroxide/Mg Hydroxide 30 ml 03/29/18 16:52 Mylanta Oral Suspension - PO Q6H PRN DYSPEPSIA Cyclobenzaprine HCl 5 mg 03/29/18 22:30 04/07/18 06:38 Cyclobenzaprine Hcl PO 5 mg TID IDALMIS Administration Eucalyptus/Menthol/Phenol/Sorbitol 1 each 03/29/18 16:52 Cepastat Lozenge - MM Q4H PRN SORE THROAT Guaifenesin 10 ml 03/29/18 16:52 Robitussin Dm - PO Q6H PRN COUGH Hydroxyzine Pamoate 50 mg 03/29/18 16:52 04/02/18 21:54 Vistaril - PO 50 mg Q4H PRN Administration AGITATION Ibuprofen 400 mg 03/29/18 16:52 04/05/18 21:46 Motrin - PO 400 mg Q6H PRN Administration Pain Level 4-6 Loperamide HCl 4 mg 03/29/18 16:52 Imodium - PO Q6H PRN DIARRHEA Magnesium Citrate 300 ml 03/29/18 16:52 Citroma - PO Q48H PRN CONSTIPATION Magnesium Hydroxide 30 ml 03/29/18 16:52 Milk Of Magnesia - PO DAILY PRN CONSTIPATION Melatonin 5 mg 03/29/18 22:00 04/06/18 21:46 Melatonin PO 5 mg HS PRN Administration INSOMNIA Nicotine 7 mg 03/30/18 10:00 04/07/18 10:26 Nicoderm Patch - TD 7 mg DAILY IDALMIS Administration Nicotine Polacrilex 2 mg 03/29/18 16:52 Nicorette Gum - BUC Q2H PRN NICOTINE REPLACEMENT RX Multivit/Folic Acid/Iron 1 tab 03/30/18 10:00 04/07/18 10:26 Vitamins (Sjr) - PO 1 tab DAILY IDALMIS Administration Pseudoephedrine/Triprolidine 1 combo 03/29/18 16:52 Actifed - PO TID PRN NASAL CONGESTION Quetiapine Fumarate 200 mg 03/30/18 22:00 04/06/18 21:46 Seroquel - PO 200 mg HS IDALMIS Administration Silver Sulfadiazine 1 applic 03/29/18 22:00 04/07/18 10:25 Silvadene - TP 1 applic BID IDALMIS Administration Thiamine HCl 100 mg 03/29/18 22:00 04/06/18 21:46 Vitamin B1 - PO 100 mg HS IDALMIS Administration Trimethoprim/Sulfamethoxazole 1 each 03/29/18 22:00 04/07/18 10:25 Bactrim Ds - PO 1 each BID IDALMIS Administration Current Side Effect: No Lab tests ordered: Yes Lab tests reviewed: Yes Provider note:: Patient will complete this program on 04/08/18. He has met his treatment goals and will continue to address his issues in outpatient treatment at [facility]. Told advertising copywriter that from his participation in this program, he has learned to focus on himself, be compliant to his outpatient program and to stay away from people, places and things. He responded well to Seroquel 200 mg po HS. Script for 30 days supply of medication will be electronically transmitted to [facility] at [address] [place] [address]. He is stable for discharge on 04/08/18 Total face to face time:: 35 Psychiatric Treatment Plan - Problem List (1) Alcohol dependence Current Visit: Yes (2) Phencyclidine dependence Current Visit: Yes (3) Nicotine dependence Current Visit: Yes (4) Substance induced mood disorder Current Visit: Yes (5) Substance-induced sleep disorder Current Visit: Yes (6) Blind left eye Current Visit: No (7) Umbilical hernia Current Visit: No Qualifiers: Obstruction and gangrene presence: without obstruction or gangrene Qualified Code(s): K42.9 - Umbilical hernia without obstruction or gangrene Initial treatment plan: Patient will be discharged tomorrow and referred to [facility] for outpatient program
[2018-04-07] MEDS: QUEtiapine FUMARATE 200 MG TABLET PO SCH (21:58)
[2018-04-07] MEDS: THIAMINE HCL 100 MG TABLET (FP) PO SCH (21:58)
[2018-04-07] MEDS: MELATONIN 5 MG TABLETS PO PRN (21:59)
[2018-04-08] MEDS: IBUPROFEN 400 MG TABLET (FP) PO PRN (06:27)
[2018-04-08] MEDS: CYCLOBENZAPRINE HCL 5 MG TABLET PO SCH (06:28)
[2018-04-08 07:28] VITALS: BP 132/88; PULSE 77
[2018-04-08] MEDS: SULFAMETHOXAZOLE/TRIMETHOPRIM 800MG/160MG D.S. TABLET PO SCH (10:40)
[2018-04-08] MEDS: NICOTINE 7 MG/24 HOURS TOPICAL PATCH TD SCH (10:40)
[2018-04-08] MEDS: PRENATAL VITAMINS W/ FOLIC ACID TABLET (FP) PO SCH (10:40)
[2018-04-08] MEDS: SILVER SULFADIAZINE 1% TOP CREAM 400 GM JAR TP SCH (10:40)
== END 2018-04-08 11:15 | disposition home or self-care (01) | DRG 772 ==
LOC: YASAS 15:27 → Y5N 15:28
PROVIDERS: ADMIT Psychiatry & Neurology Psychiatry; ATTEND Psychiatry & Neurology Psychiatry
PROC: HZ42ZZZ Group Counseling for Substance Abuse Treatment, Cognitive-Behavioral (ICD-10-PCS; principal; 2018-03-29)
DX: F10.20 Alcohol dependence, uncomplicated (principal); F16.20 Hallucinogen dependence, uncomplicated; F17.210 Nicotine dependence, cigarettes, uncomplicated; F19.24 Other psychoactive substance dependence with psychoactive substance-induced mood disorder; G47.00 Insomnia, unspecified; H54.40 Blindness, one eye, unspecified eye; K42.9 Umbilical hernia without obstruction or gangrene
CPT/HCPCS: J0735

== ENCOUNTER 2019-04-01 15:25 | Inpatient (IN) | payer OTHER ==
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
[2019-04-01] MEDS ORDERED: hydrOXYzine PAMOATE 25 MG CAPSULE (FP) PO PRN (20:40)
[2019-04-01] MEDS ORDERED: chlordiazePOXIDE HCL 25 MG CAPSULE PO PRN (20:40)
[2019-04-01] MEDS ORDERED: MAG HYDROX/AL HYDROX/SIMETH 30 ML UNIT-DOSE CUP PO PRN (20:40)
[2019-04-01] MEDS ORDERED: MAGNESIUM CITRATE 300 ML BOTTLE PO PRN (20:40)
[2019-04-01] MEDS ORDERED: MENTHOL/PHENOL 1 EACH UD MM PRN (20:40)
[2019-04-01] MEDS ORDERED: ACETAMINOPHEN 325 MG TABLET (FP) PO PRN ×2 (20:40)
[2019-04-01] MEDS ORDERED: BISMUTH SUBSALICYLATE 524 MG/30 ML UD PO PRN (20:40)
[2019-04-01] MEDS ORDERED: NICOTINE POLACRILEX 2 MG GUM BUC PRN (20:40)
[2019-04-01] MEDS ORDERED: MELATONIN 5 MG TABLETS PO PRN (20:40)
[2019-04-01] MEDS ORDERED: MAGNESIUM HYDROX 2400MG/30ML ORAL SUSPENSION 30 ML CUP PO PRN (20:40)
[2019-04-01] MEDS: chlordiazePOXIDE HCL 25 MG CAPSULE PO SCH (22:29)
[2019-04-01] MEDS: THIAMINE HCL 100 MG TABLET (FP) PO SCH (22:36)
[2019-04-02] MEDS: chlordiazePOXIDE HCL 25 MG CAPSULE PO SCH ×4 (06:53→23:00)
--- NOTE | 2019-04-02 10:07 | PN ---
S CIWA - CIWA Score Nausea/Vomitin-No Nausea/No Vomiting Muscle Tremors: 2 Anxiety: 3 Agitation: 2 Paroxysmal Sweats: 3 Orientation: 0-Oriented Tacttile Disturbances: 1-Very Mild Itch/Numbness Auditory Disturbances: 0-None Visual Disturbances: 0-None Headache: 0-None Present CIWA-Ar Total Score: 11 [facility] Progress Note (SOAP) Subjective: c/o sweats, shakes, and anxiety. Objective: 04/02/19 10:06 Vital Signs 04/02/19 04/02/19 07:29 09:43 Temperature 97.7 F 97.1 F L Pulse Rate 60 68 Respiratory 18 16 Rate Blood Pressure 135/87 111/59 L Labs pending. Assessment: 04/02/19 10:06 AOX3, in no acute distress. Full ROM, ambulating in the unit. withdrawal symptoms. Plan: continue detox.
[2019-04-02] MEDS: PRENATAL VITAMINS W/ FOLIC ACID TABLET (FP) PO SCH (10:10)
[2019-04-02] MEDS: NICOTINE 14 MG/24 HOURS TOPICAL PATCH TD SCH (10:11)
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
[2019-04-02 15:17] LABS: ALBUMIN 2.8 g/dl (3.4-5.0); BILIRUBIN,TOTAL 0.5 mg/dL (0.2-1); BLOOD UREA NITROGEN 12.2 mg/dL (7-18); CALCIUM 8.1 mg/dL (8.5-10.1); POTASSIUM 4.3 mmol/L (3.5-5.1); TOT PROT 7.2 g/dl (6.4-8.2)
[2019-04-02 15:25] LABS: HEMATOCRIT 26.5 % (35.4-49); HEMOGLOBIN 8.6 GM/dL (11.7-16.9); MCH 22.8 pg (25.7-33.7); MCHC 32.4 g/dl (32.0-35.9); MEAN CELL VOLUME 70.6 fl (80-96); MEAN PLT VOLUME 8.4 fl (7.5-11.1); PLATELET COUNT 397 K/MM3 (134-434); RBC 3.76 M/mm3 (4.00-5.60); RDW 21.9 % (11.9-15.9); WHITE BLOOD COUNT 6.8 K/mm3 (4.0-10.0)
[2019-04-02] MEDS: QUEtiapine FUMARATE 200 MG TABLET PO SCH (23:01)
[2019-04-02] MEDS: THIAMINE HCL 100 MG TABLET (FP) PO SCH (23:01)
[2019-04-02] MEDS: IBUPROFEN 400 MG TABLET (FP) PO PRN (23:03)
[2019-04-03] MEDS: chlordiazePOXIDE HCL 25 MG CAPSULE PO SCH ×4 (05:52→22:24)
[2019-04-03] MEDS: IBUPROFEN 400 MG TABLET (FP) PO PRN ×2 (05:53→17:57)
[2019-04-03] MEDS: METHOCARBAMOL 500 MG TABLET PO PRN ×2 (10:49→22:27)
[2019-04-03] MEDS: NICOTINE 14 MG/24 HOURS TOPICAL PATCH TD SCH (10:49)
[2019-04-03] MEDS: PRENATAL VITAMINS W/ FOLIC ACID TABLET (FP) PO SCH (10:49)
--- NOTE | 2019-04-03 11:25 | PN ---
S CIWA - CIWA Score Nausea/Vomitin Muscle Tremors: None Anxiety: 0-No Anxiety, at Ease Agitation: 0-Normal Activity Paroxysmal Sweats: 3 Orientation: 0-Oriented Tacttile Disturbances: 2-Mild Itch/Numbness/Burn Auditory Disturbances: 0-None Visual Disturbances: 0-None Headache: 2-Mild CIWA-Ar Total Score: 9 BHS Progress Note (SOAP) Subjective: PATIENT C/O MILD HEADACHE, INTERMITTENT NAUSEA, CHILLS. Objective: 04/03/19 11:23 Laboratory Tests 04/02/19 04/02/19 04/02/19 09:45 09:45 09:45 WBC 6.8 RBC 3.76 L Hgb 8.6 L Hct 26.5 L D MCV 70.6 L MCH 22.8 L MCHC 32.4 RDW 21.9 H Plt Count 397 D MPV 8.4 D Sodium 140 Potassium 4.3 Chloride 107 Carbon Dioxide 29 Anion Gap 4 L BUN 12.2 Creatinine 1.0 Est GFR (CKD-EPI)AfAm 101.26 Est GFR (CKD-EPI)NonAf 87.37 Random Glucose 112 H Calcium 8.1 L Total Bilirubin 0.5 AST 45 H ALT 23 Alkaline Phosphatase 67 Total Protein 7.2 Albumin 2.8 L RPR Titer Nonreactive Vital Signs Temperature 96.8 F L 04/03/19 09:13 Pulse Rate 73 04/03/19 09:13 Respiratory Rate 18 04/03/19 09:13 Blood Pressure 132/93 04/03/19 09:13 O2 Sat by Pulse Oximetry (%) PE: ALERT AND ORIENTED X 3 SKIN WARM AND DRY +PERRLA, EOMS INTACT BL EXT FULL ROM, AMB AD SHARRI NO TREMORS Assessment: 04/03/19 11:24 WITHDRAWAL SX ANEMIA Plan: LABS APPRECIATED WILL CONTINUE DETOX REPEAT CBC IN AM ENCOURAGE FLUIDS
--- NOTE | 2019-04-03 17:46 | EKG ---
Test Reason : Blood Pressure : / mmHG Vent. Rate : 066 BPM Atrial Rate : 066 BPM P-R Int : 122 ms QRS Dur : 086 ms QT Int : 418 ms P-R-T Axes : 052 063 062 degrees QTc Int : 438 ms NORMAL SINUS RHYTHM NORMAL ECG WHEN COMPARED WITH ECG OF 26-MAR-2018 12:31, NO SIGNIFICANT CHANGE WAS FOUND Confirmed by SHAKIRA LANDRY MD ([id number]) on 04/03/2019 5:45:57 PM Referred By: Confirmed By:SHAKIRA LANDRY MD
[2019-04-03] MEDS: THIAMINE HCL 100 MG TABLET (FP) PO SCH (22:24)
[2019-04-03] MEDS: QUEtiapine FUMARATE 200 MG TABLET PO SCH (22:25)
[2019-04-04] MEDS ORDERED: chlordiazePOXIDE HCL 10 MG CAPSULE PO PRN
[2019-04-04] MEDS: chlordiazePOXIDE HCL 10 MG CAPSULE PO SCH ×4 (06:33→22:17)
[2019-04-04] MEDS: PRENATAL VITAMINS W/ FOLIC ACID TABLET (FP) PO SCH (10:57)
[2019-04-04] MEDS: NICOTINE 14 MG/24 HOURS TOPICAL PATCH TD SCH (10:57)
[2019-04-04] MEDS: METHOCARBAMOL 500 MG TABLET PO PRN ×2 (10:58→22:23)
[2019-04-04 12:18] LABS: HEMATOCRIT 29.3 % (35.4-49); HEMOGLOBIN 9.4 GM/dL (11.7-16.9); MEAN CELL VOLUME 71.8 fl (80-96); MEAN PLT VOLUME 9.1 fl (7.5-11.1); PLATELET COUNT 372 K/MM3 (134-434); RBC 4.08 M/mm3 (4.00-5.60); RDW 22.5 % (11.9-15.9); WHITE BLOOD COUNT 8.3 K/mm3 (4.0-10.0)
--- NOTE | 2019-04-04 14:10 | PN ---
S CIWA - CIWA Score Nausea/Vomitin Muscle Tremors: None Anxiety: 2 Agitation: 2 Paroxysmal Sweats: 2 Orientation: 0-Oriented Tacttile Disturbances: 1-Very Mild Itch/Numbness Auditory Disturbances: 0-None Visual Disturbances: 0-None Headache: 2-Mild CIWA-Ar Total Score: 11 S Progress Note (SOAP) Subjective: Nausea (Mild), Sweating, Chills. Objective: PATIENT A & O X 3, OBSERVED AMBULATING ON UNIT UNASSISTED. IN NO ACUTE DISTRESS. 04/04/19 14:10 Vital Signs Temperature 98.3 F 04/04/19 13:12 Pulse Rate 83 04/04/19 13:12 Respiratory Rate 18 04/04/19 13:12 Blood Pressure 150/83 04/04/19 13:12 O2 Sat by Pulse Oximetry (%) Laboratory Tests 04/02/19 04/02/19 04/02/19 09:45 09:45 09:45 WBC 6.8 RBC 3.76 L Hgb 8.6 L Hct 26.5 L D MCV 70.6 L MCH 22.8 L MCHC 32.4 RDW 21.9 H Plt Count 397 D MPV 8.4 D Absolute Neuts (auto) Neutrophils % Lymphocytes % Nucleated RBC % Sodium 140 Potassium 4.3 Chloride 107 Carbon Dioxide 29 Anion Gap 4 L BUN 12.2 Creatinine 1.0 Est GFR (CKD-EPI)AfAm 101.26 Est GFR (CKD-EPI)NonAf 87.37 Random Glucose 112 H Calcium 8.1 L Total Bilirubin 0.5 AST 45 H ALT 23 Alkaline Phosphatase 67 Total Protein 7.2 Albumin 2.8 L RPR Titer Nonreactive 04/04/19 08:44 WBC 8.3 RBC 4.08 Hgb 9.4 L Hct 29.3 L MCV 71.8 L MCH 23.0 L MCHC 32.0 RDW 22.5 H Plt Count 372 MPV 9.1 Absolute Neuts (auto) 4.3 Neutrophils % No Result Required. Lymphocytes % No Result Required. Nucleated RBC % 0 Sodium Potassium Chloride Carbon Dioxide Anion Gap BUN Creatinine Est GFR (CKD-EPI)AfAm Est GFR (CKD-EPI)NonAf Random Glucose Calcium Total Bilirubin AST ALT Alkaline Phosphatase Total Protein Albumin RPR Titer LABS NOTED. RESULTS OF REPEAT CBC NOTED. MILD INCREASES NOTED IN RBC, HCT, AND HGB LEVELS. 04/04/19 14:12 Assessment: 04/04/19 14:12 WITHDRAWAL SYMPTOMS. ANEMIA. Plan: CONTINUE DETOX. FEOSOL, 325 MG PO BIDWM FOR ANEMIA NOTED ON DETOX ADMISSION AND REPEAT LABORATORY ASSESSMENT. PATIENT IS CURRENTLY RECEIVING DAILY MVI CONTAINING B VITAMINS AND IRON WHILE ADMITTED FOR DETOX.
[2019-04-04 15:41] LABS: ANISOCYTOSIS 1+; MACROCYTOSIS 0; PLATELET ESTIMATE NORMAL; TARGET CELLS 1+
[2019-04-04] MEDS: FERROUS SO4 325 MG TABLET (FP) PO SCH (17:42)
[2019-04-04] MEDS: QUEtiapine FUMARATE 200 MG TABLET PO SCH (22:17)
[2019-04-04] MEDS: THIAMINE HCL 100 MG TABLET (FP) PO SCH (22:17)
[2019-04-04] MEDS: IBUPROFEN 400 MG TABLET (FP) PO PRN (22:22)
[2019-04-05] MEDS: chlordiazePOXIDE HCL 10 MG CAPSULE PO SCH ×2 (06:17→18:08)
[2019-04-05] MEDS: FERROUS SO4 325 MG TABLET (FP) PO SCH ×2 (07:06→18:08)
--- NOTE | 2019-04-05 09:03 | PN ---
[facility] CIWA - CIWA Score Nausea/Vomitin-No Nausea/No Vomiting Muscle Tremors: 1-None Visible, but [place] Anxiety: 1-Mildly Anxious Agitation: 1-Slight > Activity Paroxysmal Sweats: No Perspiration Orientation: 0-Oriented Tacttile Disturbances: 0-None Auditory Disturbances: 0-None Visual Disturbances: 0-None Headache: 1-Very Mild CIWA-Ar Total Score: 4 BHS Progress Note (SOAP) Subjective: alert,irritable,interrupted sleep Objective: 04/05/19 09:02 Vital Signs Temperature 98.4 F 04/05/19 06:00 Pulse Rate 58 L 04/05/19 06:00 Respiratory Rate 18 04/05/19 06:00 Blood Pressure 120/80 04/05/19 06:00 O2 Sat by Pulse Oximetry (%) Assessment: 04/05/19 09:02 withdrawal symptom Plan: continue detox,discharge in am
[2019-04-05] MEDS: PRENATAL VITAMINS W/ FOLIC ACID TABLET (FP) PO SCH (10:57)
[2019-04-05] MEDS: NICOTINE 14 MG/24 HOURS TOPICAL PATCH TD SCH (10:57)
[2019-04-05 20:19] VITALS: TEMP 97.5
[2019-04-05] MEDS: THIAMINE HCL 100 MG TABLET (FP) PO SCH (22:19)
[2019-04-05] MEDS: IBUPROFEN 400 MG TABLET (FP) PO PRN (22:19)
[2019-04-05] MEDS: QUEtiapine FUMARATE 200 MG TABLET PO SCH (22:21)
[2019-04-05] MEDS: METHOCARBAMOL 500 MG TABLET PO PRN (22:22)
[2019-04-06] MEDS ORDERED: chlordiazePOXIDE HCL 10 MG CAPSULE PO ONE (05:00)
[2019-04-06] MEDS: METHOCARBAMOL 500 MG TABLET PO PRN (06:04)
[2019-04-06] MEDS: IBUPROFEN 400 MG TABLET (FP) PO PRN (06:04)
[2019-04-06] MEDS: FERROUS SO4 325 MG TABLET (FP) PO SCH (07:00)
--- NOTE | 2019-04-06 08:41 | DS ---
[facility] Detox Discharge Summary Admission Date: 04/01/19 Discharge Date: 04/06/19 - History Present History: Alcohol Dependence, Pcp Dependence - Physical Exam Results Vital Signs: Vital Signs Temperature 97.5 F L 04/06/19 06:15 Pulse Rate 60 04/06/19 06:15 Respiratory Rate 18 04/06/19 06:15 Blood Pressure 144/71 04/06/19 06:15 O2 Sat by Pulse Oximetry (%) Pertinent Admission Physical Exam Findings: pt arrived in withdrawal sx Laboratory Tests 04/02/19 04/02/19 04/02/19 09:45 09:45 09:45 WBC 6.8 RBC 3.76 L Hgb 8.6 L Hct 26.5 L D MCV 70.6 L MCH 22.8 L MCHC 32.4 RDW 21.9 H Plt Count 397 D MPV 8.4 D Absolute Neuts (auto) Neutrophils % Neutrophils % (Manual) Band Neutrophils % Lymphocytes % Lymphocytes % (Manual) Monocytes % (Manual) Eosinophils % (Manual) Basophils % (Manual) Myelocytes % (Man) Promyelocytes % (Man) Blast Cells % (Manual) Nucleated RBC % Metamyelocytes Hypochromia Platelet Estimate Polychromasia Poikilocytosis Anisocytosis Microcytosis Macrocytosis Target Cells Lynsey Cells Sodium 140 Potassium 4.3 Chloride 107 Carbon Dioxide 29 Anion Gap 4 L BUN 12.2 Creatinine 1.0 Est GFR (CKD-EPI)AfAm 101.26 Est GFR (CKD-EPI)NonAf 87.37 Random Glucose 112 H Calcium 8.1 L Total Bilirubin 0.5 AST 45 H ALT 23 Alkaline Phosphatase 67 Total Protein 7.2 Albumin 2.8 L RPR Titer Nonreactive 04/04/19 08:44 WBC 8.3 RBC 4.08 Hgb 9.4 L Hct 29.3 L MCV 71.8 L MCH 23.0 L MCHC 32.0 RDW 22.5 H Plt Count 372 MPV 9.1 Absolute Neuts (auto) 4.3 Neutrophils % No Result Required. Neutrophils % (Manual) 58.8 Band Neutrophils % 0.0 Lymphocytes % No Result Required. Lymphocytes % (Manual) 36.1 Monocytes % (Manual) 3 L Eosinophils % (Manual) 2.0 Basophils % (Manual) 0.0 Myelocytes % (Man) 0 Promyelocytes % (Man) 0 Blast Cells % (Manual) 0 Nucleated RBC % 0 Metamyelocytes 0 Hypochromia 0 Platelet Estimate Normal Polychromasia 1+ Poikilocytosis 1+ Anisocytosis 1+ Microcytosis 1+ Macrocytosis 0 Target Cells 1+ Lynsey Cells 1+ Sodium Potassium Chloride Carbon Dioxide Anion Gap BUN Creatinine Est GFR (CKD-EPI)AfAm Est GFR (CKD-EPI)NonAf Random Glucose Calcium Total Bilirubin AST ALT Alkaline Phosphatase Total Protein Albumin RPR Titer today pt is aaox3 ambulating no acute distress no s/s of withdrawals - Treatment Hospital Course: Detox Protocol Followed, Detoxed Safely, Responded well, Discharged Condition Good, Rehab Referral Accepted Patient has Accepted a Rehab Referral to: pt referred to the [facility] - Medication Discharge Medications: Ambulatory Orders Quetiapine Fumarate [Seroquel -] 200 mg PO HS #30 tablet 04/07/18 - Diagnosis (1) Alcohol dependence with uncomplicated withdrawal Current Visit: Yes Status: Chronic (2) Anemia Current Visit: Yes Status: Chronic Qualifiers: Anemia type: unspecified type Qualified Code(s): D64.9 - Anemia, unspecified (3) PCP dependence Current Visit: Yes Status: Chronic (4) Substance-induced sleep disorder Current Visit: Yes Status: Acute (5) Depression Current Visit: Yes Status: Chronic Qualifiers: Depression Type: unspecified Qualified Code(s): F32.9 - Major depressive disorder, single episode, unspecified (6) Hypertension Current Visit: Yes Status: Chronic Qualifiers: Hypertension type: essential hypertension Qualified Code(s): I10 - Essential (primary) hypertension (7) Nicotine dependence Current Visit: Yes Status: Chronic Qualifiers: Nicotine product type: cigarettes Substance use status: uncomplicated Qualified Code(s): F17.210 - Nicotine dependence, cigarettes, uncomplicated (8) Alcohol induced insomnia Current Visit: No Status: Acute (9) Drug-induced mood disorder Current Visit: No Status: Acute (10) Insomnia Current Visit: No Status: Acute Qualifiers: Insomnia type: unspecified Qualified Code(s): G47.00 - Insomnia, unspecified (11) Phencyclidine dependence Current Visit: Yes Status: Chronic (12) Substance induced mood disorder Current Visit: No Status: Acute (13) 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
[2019-04-06 09:11] VITALS: BP 144/85; PULSE 71
--- NOTE | 2019-04-07 14:41 | EKG ---
Test Reason : Blood Pressure : / mmHG Vent. Rate : 066 BPM Atrial Rate : 066 BPM P-R Int : 126 ms QRS Dur : 084 ms QT Int : 426 ms P-R-T Axes : 066 074 074 degrees QTc Int : 446 ms NORMAL SINUS RHYTHM MODERATE VOLTAGE CRITERIA FOR LVH, MAY BE NORMAL VARIANT CANNOT RULE OUT SEPTAL INFARCT , AGE UNDETERMINED ABNORMAL ECG WHEN COMPARED WITH ECG OF 01-APR-2019 21:01, NO SIGNIFICANT CHANGE WAS FOUND Confirmed by KEITH FINN MD ([id number]) on 04/07/2019 2:40:41 PM Referred By: CHUCKY LINDSEY Confirmed By:KEITH FINN MD
== END 2019-04-06 09:35 | disposition home or self-care (01) | DRG 775 ==
LOC: YASAS 15:25 → Y6N 20:51
PROVIDERS: ADMIT Surgery; ATTEND Surgery
PROC: HZ2ZZZZ Detoxification Services for Substance Abuse Treatment (ICD-10-PCS; principal; 2019-04-01)
DX: F10.230 Alcohol dependence with withdrawal, uncomplicated (principal); F10.282 Alcohol dependence with alcohol-induced sleep disorder; F16.20 Hallucinogen dependence, uncomplicated; F17.210 Nicotine dependence, cigarettes, uncomplicated; F32.9 Major depressive disorder, single episode, unspecified; F19.24 Other psychoactive substance dependence with psychoactive substance-induced mood disorder; F19.282 Other psychoactive substance dependence with psychoactive substance-induced sleep disorder; F41.9 Anxiety disorder, unspecified; D64.9 Anemia, unspecified; I10 Essential (primary) hypertension; G47.00 Insomnia, unspecified; H54.40 Blindness, one eye, unspecified eye; K42.9 Umbilical hernia without obstruction or gangrene; S31.109S Unspecified open wound of abdominal wall, unspecified quadrant without penetration into peritoneal cavity, sequela; X58.XXXS Exposure to other specified factors, sequela
CPT/HCPCS: 36415; 80053; 85025; 85027; 86593; 93005; 93010

== ENCOUNTER 2019-04-20 04:21 | Inpatient (IN) | payer OTHER ==
[2019-04-20 04:29] VITALS: BMI 26.1
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
[2019-04-20] MEDS ORDERED: MAG HYDROX/AL HYDROX/SIMETH 30 ML UNIT-DOSE CUP PO PRN (04:35)
[2019-04-20] MEDS ORDERED: guaiFENesin 200 MG/10 ML 10 ML UNIT-DOSE CUPS PO PRN (04:35)
[2019-04-20] MEDS ORDERED: hydrOXYzine PAMOATE 25 MG CAPSULE (FP) PO PRN (04:35)
[2019-04-20] MEDS ORDERED: chlordiazePOXIDE HCL 10 MG CAPSULE PO PRN (04:35)
[2019-04-20] MEDS ORDERED: MAGNESIUM HYDROX 2400MG/30ML ORAL SUSPENSION 30 ML CUP PO PRN (04:35)
[2019-04-20] MEDS ORDERED: MAGNESIUM CITRATE 300 ML BOTTLE PO PRN (04:35)
[2019-04-20] MEDS ORDERED: BISMUTH SUBSALICYLATE 524 MG/30 ML UD PO PRN (04:35)
[2019-04-20] MEDS ORDERED: P-EPHED 60MG/TRIPROLIDI 2.5MG TABLET PO PRN (04:35)
[2019-04-20] MEDS ORDERED: ONDANSETRON *ODT* 4 MG TABLET SL PRN (04:35)
[2019-04-20] MEDS ORDERED: IBUPROFEN 400 MG TABLET (FP) PO PRN (04:35)
[2019-04-20] MEDS ORDERED: ACETAMINOPHEN 325 MG TABLET (FP) PO PRN ×2 (04:35)
[2019-04-20] MEDS ORDERED: MENTHOL/PHENOL 1 EACH UD MM PRN (04:35)
[2019-04-20] MEDS ORDERED: NICOTINE POLACRILEX 2 MG GUM BUC PRN (04:35)
[2019-04-20] MEDS ORDERED: DICYCLOMINE HCL 10 MG CAPSULE PO PRN (04:35)
[2019-04-20] MEDS: chlordiazePOXIDE HCL 25 MG CAPSULE PO SCH ×3 (06:09→22:15)
--- NOTE | 2019-04-20 09:35 | PN ---
S CIWA - CIWA Score Nausea/Vomitin-Mild Nausea/No Vomiting Muscle Tremors: 4-Moderate,w/Arms Extend Anxiety: 2 Agitation: 3 Paroxysmal Sweats: 1-Minimal Palms Moist Orientation: 1-Uncertain about Date Tacttile Disturbances: 0-None Auditory Disturbances: 0-None Visual Disturbances: 0-None Headache: 1-Very Mild CIWA-Ar Total Score: 13 S Progress Note (SOAP) Subjective: 48 years old male admitted on 04/20/19 for acute alcohol withdrawal sx management experiencing tremor restlessness and anxiety resting on bed tired trouble to fall asleep Objective: 04/20/19 09:34 Vital Signs Temperature 98.0 F 04/20/19 09:06 Pulse Rate 69 04/20/19 09:06 Respiratory Rate 17 04/20/19 06:52 Blood Pressure 101/56 L 04/20/19 09:06 O2 Sat by Pulse Oximetry (%) 04/20/19 09:34 admission lab ordered result pending Assessment: 04/20/19 09:34 alcohol withdrawal sx Plan: continue alcohol detox
[2019-04-20] MEDS: PRENATAL VITAMINS W/ FOLIC ACID TABLET (FP) PO SCH (10:16)
[2019-04-20] MEDS: NICOTINE 14 MG/24 HOURS TOPICAL PATCH TD SCH (10:17)
[2019-04-20 11:21] LABS: ALBUMIN 3.6 g/dl (3.4-5.0); BILIRUBIN,TOTAL 0.3 mg/dL (0.2-1); BLOOD UREA NITROGEN 9.2 mg/dL (7-18); CALCIUM 8.9 mg/dL (8.5-10.1); CREATININE 0.9 mg/dL (0.55-1.3); POTASSIUM 4.2 mmol/L (3.5-5.1); TOT PROT 8.8 g/dl (6.4-8.2)
[2019-04-20 11:45] LABS: HEMATOCRIT 32.2 % (35.4-49); HEMOGLOBIN 10.1 GM/dL (11.7-16.9); MCHC 31.4 g/dl (32.0-35.9); MEAN CELL VOLUME 73.2 fl (80-96); MEAN PLT VOLUME 8.6 fl (7.5-11.1); PLATELET COUNT 552 K/MM3 (134-434); RDW 23.9 % (11.9-15.9); WHITE BLOOD COUNT 7.2 K/mm3 (4.0-10.0)
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
[2019-04-20 16:06] LABS: EPI CELLS 2.4 /HPF (0-5/HPF); HYALINE CASTS 4 /lpf (0-8); PH,URINE 5.5 (5.0-8.0); URINE APPEARANCE CLOUDY; URINE BACTERIA 90.6 /hpf (NEGATIVE); URINE BILIRUBIN NEGATIVE (NEGATIVE); URINE COLOR YELLOW; URINE GLUCOSE (UA) NEGATIVE (NEGATIVE); URINE KETONE TRACE (NEGATIVE); URINE LEUK ESTERASE 1+ (NEGATIVE); URINE NITRITE NEGATIVE (NEGATIVE); URINE PROTEIN NEGATIVE (NEGATIVE); URINE RBC 2 /hpf (0-4); URINE UROBILINOGEN 0.2 mg/dL (0.2-1.0); URINE WBC 28 /hpf (0-5)
[2019-04-20] MEDS: QUEtiapine FUMARATE 100 MG TABLET (FP) PO SCH (22:15)
[2019-04-20] MEDS: THIAMINE HCL 100 MG TABLET (FP) PO SCH (22:15)
[2019-04-20] MEDS: METHOCARBAMOL 500 MG TABLET PO PRN (22:16)
[2019-04-20] MEDS: MELATONIN 5 MG TABLETS PO PRN (22:16)
[2019-04-21] MEDS: chlordiazePOXIDE 5 MG CAPSULE PO SCH ×3 (05:17→22:02)
--- NOTE | 2019-04-21 09:26 | PN ---
[facility] CIWA - CIWA Score Nausea/Vomitin-No Nausea/No Vomiting Muscle Tremors: 3 Anxiety: 2 Agitation: 3 Paroxysmal Sweats: 1-Minimal Palms Moist Orientation: 0-Oriented Tacttile Disturbances: 0-None Auditory Disturbances: 0-None Visual Disturbances: 0-None Headache: 1-Very Mild CIWA-Ar Total Score: 10 S Progress Note (SOAP) Subjective: 48 years old male received apap 500 mg 120 tables on 10/14/2018 negative opiate urine toxicity upon admission history of hypertension currently no treatment but dietary measurement experiencing alcohol withdrawal sx of tremor and anxiety resting in bed tolerate food and fluid well Objective: 04/21/19 09:28 Vital Signs Temperature 97.0 F L 04/21/19 09:11 Pulse Rate 49 L 04/21/19 09:11 Respiratory Rate 18 04/21/19 09:11 Blood Pressure 105/66 04/21/19 09:11 O2 Sat by Pulse Oximetry (%) Laboratory Last Values WBC 7.2 K/mm3 (4.0-10.0) 04/20/19 07:00 RBC 4.40 M/mm3 (4.00-5.60) 04/20/19 07:00 Hgb 10.1 GM/dL (11.7-16.9) L 04/20/19 07:00 Hct 32.2 % (35.4-49) L 04/20/19 07:00 MCV 73.2 fl (80-96) L 04/20/19 07:00 MCH 23.0 pg (25.7-33.7) L 04/20/19 07:00 MCHC 31.4 g/dl (32.0-35.9) L 04/20/19 07:00 RDW 23.9 % (11.9-15.9) H 04/20/19 07:00 Plt Count 552 K/MM3 (134-434) H D 04/20/19 07:00 MPV 8.6 fl (7.5-11.1) 04/20/19 07:00 Sodium 139 mmol/L (136-145) 04/20/19 07:00 Potassium 4.2 mmol/L (3.5-5.1) 04/20/19 07:00 Chloride 103 mmol/L (98-107) 04/20/19 07:00 Carbon Dioxide 24 mmol/L (21-32) 04/20/19 07:00 Anion Gap 11 MMOL/L (8-16) 04/20/19 07:00 BUN 9.2 mg/dL (7-18) 04/20/19 07:00 Creatinine 0.9 mg/dL (0.55-1.3) 04/20/19 07:00 Est GFR (CKD-EPI)AfAm 115.02 04/20/19 07:00 Est GFR (CKD-EPI)NonAf 99.24 04/20/19 07:00 Random Glucose 69 mg/dL (74-106) L 04/20/19 07:00 Calcium 8.9 mg/dL (8.5-10.1) 04/20/19 07:00 Total Bilirubin 0.3 mg/dL (0.2-1) 04/20/19 07:00 AST 63 U/L (15-37) H 04/20/19 07:00 ALT 29 U/L (13-61) 04/20/19 07:00 Alkaline Phosphatase 84 U/L (45-117) 04/20/19 07:00 Total Protein 8.8 g/dl (6.4-8.2) H 04/20/19 07:00 Albumin 3.6 g/dl (3.4-5.0) 04/20/19 07:00 Urine Color Yellow 04/20/19 14:15 Urine Appearance Cloudy 04/20/19 14:15 Urine pH 5.5 (5.0-8.0) 04/20/19 14:15 Ur Specific [place] 1.014 (1.010-1.035) 04/20/19 14:15 Urine Protein Negative (NEGATIVE) 04/20/19 14:15 Urine Glucose (UA) Negative (NEGATIVE) 04/20/19 14:15 Urine Ketones Trace (NEGATIVE) H 04/20/19 14:15 Urine Blood Trace (NEGATIVE) 04/20/19 14:15 Urine Nitrite Negative (NEGATIVE) 04/20/19 14:15 Urine Bilirubin Negative (NEGATIVE) 04/20/19 14:15 Urine Urobilinogen 0.2 mg/dL (0.2-1.0) 04/20/19 14:15 Ur Leukocyte Esterase 1+ (NEGATIVE) H 04/20/19 14:15 Urine WBC (Auto) 28 /hpf (0-5) 04/20/19 14:15 Urine RBC (Auto) 2 /hpf (0-4) 04/20/19 14:15 Urine Casts (Auto) 4 /lpf (0-8) 04/20/19 14:15 U Epithel Cells (Auto) 2.4 /HPF (0-5/HPF) 04/20/19 14:15 Urine Bacteria (Auto) 90.6 /hpf (NEGATIVE) 04/20/19 14:15 lab noted repeat ua Assessment: 04/21/19 09:29 alcohol withdrawal sx discuss risks of apap and proper disposal Plan: continue alcohol detox
[2019-04-21] MEDS: PRENATAL VITAMINS W/ FOLIC ACID TABLET (FP) PO SCH (10:09)
[2019-04-21] MEDS: NICOTINE 14 MG/24 HOURS TOPICAL PATCH TD SCH (10:10)
[2019-04-21 16:51] LABS: EPI CELLS 2.8 /HPF (0-5/HPF); HYALINE CASTS 6 /lpf (0-8); PH,URINE 6.5 (5.0-8.0); URINE APPEARANCE CLEAR; URINE BILIRUBIN NEGATIVE (NEGATIVE); URINE COLOR YELLOW; URINE GLUCOSE (UA) NEGATIVE (NEGATIVE); URINE KETONE NEGATIVE (NEGATIVE); URINE LEUK ESTERASE 2+ (NEGATIVE); URINE NITRITE NEGATIVE (NEGATIVE); URINE PROTEIN NEGATIVE (NEGATIVE); URINE RBC 1 /hpf (0-4); URINE UROBILINOGEN 0.2 mg/dL (0.2-1.0); URINE WBC 38 /hpf (0-5)
[2019-04-21] MEDS: METHOCARBAMOL 500 MG TABLET PO PRN (22:03)
[2019-04-21] MEDS: MELATONIN 5 MG TABLETS PO PRN (22:03)
[2019-04-21] MEDS: THIAMINE HCL 100 MG TABLET (FP) PO SCH (22:03)
[2019-04-21] MEDS: QUEtiapine FUMARATE 100 MG TABLET (FP) PO SCH (22:03)
[2019-04-22] MEDS ORDERED: chlordiazePOXIDE HCL 10 MG CAPSULE PO PRN
[2019-04-22] MEDS ORDERED: chlordiazePOXIDE HCL 10 MG CAPSULE PO SCH (05:00)
[2019-04-22 09:06] VITALS: BP 114/75; PULSE 62; TEMP 97
[2019-04-22] MEDS: NICOTINE 14 MG/24 HOURS TOPICAL PATCH TD SCH (10:06)
[2019-04-22] MEDS: PRENATAL VITAMINS W/ FOLIC ACID TABLET (FP) PO SCH (10:08)
--- NOTE | 2019-04-22 17:07 | PN ---
S CIWA - CIWA Score Nausea/Vomitin-No Nausea/No Vomiting Muscle Tremors: None Anxiety: 0-No Anxiety, at Ease Agitation: 2 Paroxysmal Sweats: No Perspiration Orientation: 0-Oriented Tacttile Disturbances: 0-None Auditory Disturbances: 0-None Visual Disturbances: 0-None Headache: 0-None Present CIWA-Ar Total Score: 2 BHS Progress Note (SOAP) Subjective: Patient Denies Current Withdrawal / Detox Symptoms and Reports That He Feels Well Overall At This Time. Objective: PATIENT A & O X 3, OBSERVED AMBULATING ON DETOX UNIT UNASSISTED. IN NO ACUTE DISTRESS. 04/22/19 17:05 Vital Signs Temperature 97 F L 04/22/19 09:06 Pulse Rate 62 04/22/19 09:06 Respiratory Rate 18 04/22/19 09:06 Blood Pressure 114/75 04/22/19 09:06 O2 Sat by Pulse Oximetry (%) Laboratory Tests 04/20/19 04/20/19 04/20/19 07:00 07:00 14:15 WBC 7.2 RBC 4.40 Hgb 10.1 L Hct 32.2 L MCV 73.2 L MCH 23.0 L MCHC 31.4 L RDW 23.9 H Plt Count 552 H D MPV 8.6 Sodium 139 Potassium 4.2 Chloride 103 Carbon Dioxide 24 Anion Gap 11 BUN 9.2 Creatinine 0.9 Est GFR (CKD-EPI)AfAm 115.02 Est GFR (CKD-EPI)NonAf 99.24 Random Glucose 69 L Calcium 8.9 Total Bilirubin 0.3 AST 63 H ALT 29 Alkaline Phosphatase 84 Total Protein 8.8 H Albumin 3.6 Urine Color Yellow Urine Appearance Cloudy Urine pH 5.5 Ur Specific [place] 1.014 Urine Protein Negative Urine Glucose (UA) Negative Urine Ketones Trace H Urine Blood Trace Urine Nitrite Negative Urine Bilirubin Negative Urine Urobilinogen 0.2 Ur Leukocyte Esterase 1+ H Urine WBC (Auto) 28 Urine RBC (Auto) 2 Urine Casts (Auto) 4 U Epithel Cells (Auto) 2.4 Urine Bacteria (Auto) 90.6 04/21/19 14:57 WBC RBC Hgb Hct MCV MCH MCHC RDW Plt Count MPV Sodium Potassium Chloride Carbon Dioxide Anion Gap BUN Creatinine Est GFR (CKD-EPI)AfAm Est GFR (CKD-EPI)NonAf Random Glucose Calcium Total Bilirubin AST ALT Alkaline Phosphatase Total Protein Albumin Urine Color Yellow Urine Appearance Clear Urine pH 6.5 Ur Specific [place] 1.016 Urine Protein Negative Urine Glucose (UA) Negative Urine Ketones Negative Urine Blood Negative Urine Nitrite Negative Urine Bilirubin Negative Urine Urobilinogen 0.2 Ur Leukocyte Esterase 2+ H Urine WBC (Auto) 38 Urine RBC (Auto) 1 Urine Casts (Auto) 6 U Epithel Cells (Auto) 2.8 Urine Bacteria (Auto) 189.0 LABS NOTED. RESULTS OF REPEAT UA NOTED. PATIENT DENIES ANY UNUSUAL URINARY SYMPTOMS (BURNING , PAIN, FREQUENCY, URGENCY, VISUALIZATION OF BLOOD IN URINE, ETC.) 04/22/19 17:06 Assessment: 04/22/19 17:05 COMPLETION OF DETOX REGIMEN. Plan: SINCE PATIENT DENIES CURRENT WITHDRAWAL / DETOX SYMPTOMS AND REPORTS THAT HE FEELS WELL OVERALL, AT PATIENT'S REQUEST, HE WAS GRANTED AN EARLY DISCHARGE FROM DETOX UNIT SO THAT HE MAY RETURN HOME TO ATTEND TO PERSONAL MATTERS.
--- NOTE | 2019-04-22 17:13 | DS ---
[facility] Detox Discharge Summary Admission Date: 04/20/19 Discharge Date: 04/22/19 - History Present History: Alcohol Dependence, Pcp Dependence Additional Comments: PATIENT DENIES CURRENT WITHDRAWAL / DETOX SYMPTOMS AND REPORTS THAT HE FEELS WELL OVERALL AT TIME OF DISCHARGE FROM DETOX UNIT. PATIENT RETURNING HOME TO ATTEND TO PERSONAL MATTERS. PATIENT ADVISED TO CONSIDER LOCAL 12-STEP / NA / AA OUTPATIENT SUPPORT GROUPS FOR AFTERCARE. PATIENT ADVISED INCREASE DAILY PO WATER INTAKE AND TO FOLLOW-UP WITH [employer] DR[employer] SOON POSSIBLE AFTER DISCHARGE FROM DETOX UNIT FOR GENERAL MEDICAL ASSESSMENT AND FOR ANEMIA NOTED ON DETOX ADMISSION LABORATORY ASSESSMENT AND FOR HISTORY OF ABDOMINAL WOUND. PATIENT VERBALIZED UNDERSTANDING OF ALL RECOMMENDATIONS PRESENTED TO HIM PRIOR TO DISCHARGE FROM DETOX UNIT. COPIES OF RESULTS OF ALL LAB VALUES DRAWN DURING TIME OF DETOX ADMISSION GIVEN TO PATIENT PRIOR TO DISCHARGE FROM DETOX UNIT. PATIENT WAS DISCHARGED FORM DETOX UNIT IN STABLE MEDICAL CONDITION. Pertinent Past History: Nicotine Dependence, History Of Blind In Left Eye, History Of Wound In Abdominal Wall, HTN, Insomnia. - Physical Exam Results Vital Signs: Vital Signs Temperature 97 F L 04/22/19 09:06 Pulse Rate 62 04/22/19 09:06 Respiratory Rate 18 04/22/19 09:06 Blood Pressure 114/75 04/22/19 09:06 O2 Sat by Pulse Oximetry (%) Pertinent Admission Physical Exam Findings: WITHDRAWAL SYMPTOMS. Laboratory Tests 04/20/19 04/20/19 04/20/19 07:00 07:00 14:15 WBC 7.2 RBC 4.40 Hgb 10.1 L Hct 32.2 L MCV 73.2 L MCH 23.0 L MCHC 31.4 L RDW 23.9 H Plt Count 552 H D MPV 8.6 Sodium 139 Potassium 4.2 Chloride 103 Carbon Dioxide 24 Anion Gap 11 BUN 9.2 Creatinine 0.9 Est GFR (CKD-EPI)AfAm 115.02 Est GFR (CKD-EPI)NonAf 99.24 Random Glucose 69 L Calcium 8.9 Total Bilirubin 0.3 AST 63 H ALT 29 Alkaline Phosphatase 84 Total Protein 8.8 H Albumin 3.6 Urine Color Yellow Urine Appearance Cloudy Urine pH 5.5 Ur Specific [place] 1.014 Urine Protein Negative Urine Glucose (UA) Negative Urine Ketones Trace H Urine Blood Trace Urine Nitrite Negative Urine Bilirubin Negative Urine Urobilinogen 0.2 Ur Leukocyte Esterase 1+ H Urine WBC (Auto) 28 Urine RBC (Auto) 2 Urine Casts (Auto) 4 U Epithel Cells (Auto) 2.4 Urine Bacteria (Auto) 90.6 04/21/19 14:57 WBC RBC Hgb Hct MCV MCH MCHC RDW Plt Count MPV Sodium Potassium Chloride Carbon Dioxide Anion Gap BUN Creatinine Est GFR (CKD-EPI)AfAm Est GFR (CKD-EPI)NonAf Random Glucose Calcium Total Bilirubin AST ALT Alkaline Phosphatase Total Protein Albumin Urine Color Yellow Urine Appearance Clear Urine pH 6.5 Ur Specific [place] 1.016 Urine Protein Negative Urine Glucose (UA) Negative Urine Ketones Negative Urine Blood Negative Urine Nitrite Negative Urine Bilirubin Negative Urine Urobilinogen 0.2 Ur Leukocyte Esterase 2+ H Urine WBC (Auto) 38 Urine RBC (Auto) 1 Urine Casts (Auto) 6 U Epithel Cells (Auto) 2.8 Urine Bacteria (Auto) 189.0 LABS NOTED. - Treatment Hospital Course: Detox Protocol Followed, Detoxed Safely, Responded well, Discharged Condition Good Patient has Accepted a Rehab Referral to: PT. ADVISED TO CONSIDER LOCAL 12-STEP / AA OUTPATIENT SUPPORT GROUP. - Medication Discharge Medications: Ambulatory Orders Quetiapine Fumarate [Seroquel -] 200 mg PO HS #30 tablet 04/07/18 - Diagnosis (1) Alcohol dependence with uncomplicated withdrawal Status: Acute (2) At risk for dehydration due to poor fluid intake Status: Acute (3) Depressed affect Status: Acute (4) Anemia Status: Chronic Qualifiers: Anemia type: unspecified type Qualified Code(s): D64.9 - Anemia, unspecified (5) Blind left eye Status: Chronic Qualifiers: Right eye visual impairment category: right - normal vision Qualified Code( s): H54.40 - Blindness, one eye, unspecified eye (6) Hypertension Status: Chronic Qualifiers: Hypertension type: essential hypertension Qualified Code(s): I10 - Essential (primary) hypertension (7) Nicotine dependence Status: Chronic Qualifiers: Nicotine product type: cigarettes Substance use status: uncomplicated Qualified Code(s): F17.210 - Nicotine dependence, cigarettes, uncomplicated (8) Open abdominal wall wound Status: Chronic Qualifiers: Encounter type: sequela Qualified Code(s): S31.109S - Unspecified open wound of abdominal wall, unspecified quadrant without penetration into peritoneal cavity, sequela (9) Phencyclidine dependence Status: Chronic (10) Substance induced mood disorder Status: Chronic (11) Insomnia Status: Acute Qualifiers: Insomnia type: unspecified Qualified Code(s): G47.00 - Insomnia, unspecified - AMA Did Patient Leave Against Medical Advice: No
[2019-04-23] MEDS ORDERED: chlordiazePOXIDE HCL 10 MG CAPSULE PO ONE (05:00)
== END 2019-04-22 11:24 | disposition home or self-care (01) | DRG 775 ==
LOC: YASAS 04:21 → Y3N 04:31
PROVIDERS: ADMIT Surgery; ATTEND Surgery
PROC: HZ2ZZZZ Detoxification Services for Substance Abuse Treatment (ICD-10-PCS; principal; 2019-04-20)
DX: F10.230 Alcohol dependence with withdrawal, uncomplicated (principal); F16.20 Hallucinogen dependence, uncomplicated; F17.210 Nicotine dependence, cigarettes, uncomplicated; F32.9 Major depressive disorder, single episode, unspecified; F19.24 Other psychoactive substance dependence with psychoactive substance-induced mood disorder; I10 Essential (primary) hypertension; D64.9 Anemia, unspecified; R63.8 Other symptoms and signs concerning food and fluid intake; H54.40 Blindness, one eye, unspecified eye; G47.00 Insomnia, unspecified; S31.109S Unspecified open wound of abdominal wall, unspecified quadrant without penetration into peritoneal cavity, sequela; X58.XXXS Exposure to other specified factors, sequela
CPT/HCPCS: 36415; 80053; 81003; 85027

== ENCOUNTER 2019-04-29 09:05 | Inpatient (IN) | payer OTHER ==
[2019-04-29 10:16] VITALS: BMI 26.2
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
[2019-04-29] MEDS ORDERED: hydrOXYzine PAMOATE 25 MG CAPSULE (FP) PO PRN (11:32)
[2019-04-29] MEDS ORDERED: MAG HYDROX/AL HYDROX/SIMETH 30 ML UNIT-DOSE CUP PO PRN (11:32)
[2019-04-29] MEDS ORDERED: MENTHOL/PHENOL 1 EACH UD MM PRN (11:32)
[2019-04-29] MEDS ORDERED: IBUPROFEN 400 MG TABLET (FP) PO PRN (11:32)
[2019-04-29] MEDS ORDERED: MAGNESIUM HYDROX 2400MG/30ML ORAL SUSPENSION 30 ML CUP PO PRN (11:32)
[2019-04-29] MEDS ORDERED: chlordiazePOXIDE HCL 25 MG CAPSULE PO PRN (11:32)
[2019-04-29] MEDS ORDERED: MAGNESIUM CITRATE 300 ML BOTTLE PO PRN (11:32)
[2019-04-29] MEDS ORDERED: BISMUTH SUBSALICYLATE 524 MG/30 ML UD PO PRN (11:32)
[2019-04-29] MEDS ORDERED: MELATONIN 5 MG TABLETS PO PRN (11:32)
[2019-04-29] MEDS ORDERED: ACETAMINOPHEN 325 MG TABLET (FP) PO PRN ×2 (11:32)
[2019-04-29] MEDS ORDERED: PNEUMOC 13-VAL CONJ-DIP CRM/PF 0.5 ML DISP.SYRIN IM ONE (12:01)
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
[2019-04-29] MEDS: chlordiazePOXIDE HCL 25 MG CAPSULE PO SCH ×2 (18:05→22:25)
[2019-04-29] MEDS: traZODone HCL 100 MG TABLET (FP) PO SCH (22:24)
[2019-04-29] MEDS: THIAMINE HCL 100 MG TABLET (FP) PO SCH (22:25)
[2019-04-29] MEDS: QUEtiapine FUMARATE 100 MG TABLET (FP) PO SCH (22:25)
[2019-04-30] MEDS: chlordiazePOXIDE HCL 25 MG CAPSULE PO SCH ×4 (06:44→22:10)
[2019-04-30] MEDS: METHOCARBAMOL 500 MG TABLET PO PRN ×2 (10:33→17:53)
[2019-04-30] MEDS: PRENATAL VITAMINS W/ FOLIC ACID TABLET (FP) PO SCH (10:33)
[2019-04-30 10:44] LABS: HEMATOCRIT 33.9 % (35.4-49); HEMOGLOBIN 10.7 GM/dL (11.7-16.9); MCH 23.8 pg (25.7-33.7); MCHC 31.6 g/dl (32.0-35.9); MEAN CELL VOLUME 75.3 fl (80-96); MEAN PLT VOLUME 9.7 fl (7.5-11.1); PLATELET COUNT 347 K/MM3 (134-434); RBC 4.51 M/mm3 (4.00-5.60); RDW 24.9 % (11.9-15.9); WHITE BLOOD COUNT 10.2 K/mm3 (4.0-10.0)
[2019-04-30 10:48] LABS: ALBUMIN 3.7 g/dl (3.4-5.0); BILIRUBIN,TOTAL 0.5 mg/dL (0.2-1); BLOOD UREA NITROGEN 6.5 mg/dL (7-18); CALCIUM 8.8 mg/dL (8.5-10.1); TOT PROT 9.2 g/dl (6.4-8.2)
[2019-04-30] MEDS ORDERED: PNEUMOCOCCAL 23 VACCINE 0.5 ML VIAL IM ONE (12:00)
--- NOTE | 2019-04-30 14:39 | PN ---
S CIWA - CIWA Score Nausea/Vomitin Muscle Tremors: 3 Anxiety: 3 Agitation: 0-Normal Activity Paroxysmal Sweats: No Perspiration Orientation: 2-Disoriented Date<2 days Tacttile Disturbances: 2-Mild Itch/Numbness/Burn Auditory Disturbances: 2-Mild Harshness/Frighten Visual Disturbances: 0-None Headache: 2-Mild CIWA-Ar Total Score: 16 BHS Progress Note (SOAP) Subjective: Tremors, Anxious, Fatigue, Nausea, H/A. Objective: PATIENT A & O X 2 (UNCERTAIN ABOUT CURRENT DAY / DATE). IN NO ACUTE DISTRESS. 04/30/19 14:35 Vital Signs Temperature 96.9 F L 04/30/19 09:47 Pulse Rate 63 04/30/19 09:47 Respiratory Rate 18 04/30/19 09:47 Blood Pressure 128/73 04/30/19 09:47 O2 Sat by Pulse Oximetry (%) Laboratory Tests 04/29/19 04/30/19 04/30/19 12:50 06:00 06:00 WBC 10.2 H RBC 4.51 Hgb 10.7 L Hct 33.9 L MCV 75.3 L MCH 23.8 L MCHC 31.6 L RDW 24.9 H Plt Count 347 D MPV 9.7 D Sodium 141 Potassium 4.0 Chloride 107 Carbon Dioxide 24 Anion Gap 10 BUN 6.5 L Creatinine 1.0 Est GFR (CKD-EPI)AfAm 101.26 Est GFR (CKD-EPI)NonAf 87.37 Random Glucose 147 H Calcium 8.8 Total Bilirubin 0.5 AST 75 H ALT 36 Alkaline Phosphatase 90 Total Protein 9.2 H Albumin 3.7 HIV 1&2 Antibody Screen Cancelled HIV P24 Antigen Cancelled LABS NOTED. PATIENT HAS BEEN ANEMIC ON PREVIOUS ADMISSIONS. 04/30/19 14:39 Assessment: 04/30/19 14:37 WITHDRAWAL SYMPTOMS. ELEVATED AST LEVEL. HYPERGLYCEMIA. ANEMIA. Plan: CONTINUE DETOX. FEOSOL, 325 MG PO TIDCM FOR ANEMIA NOTED ON DETOX ADMISSION LABORATORY ASSESSMENT. INCREASE DAILY PO WATER INTAKE. PATIENT IS CURRENTLY RECEIVING DAILY MVI CONTAINING B VITAMINS AND IRON WHILE ADMITTED FOR DETOX. FASTING GLUCOSE LEVEL ORDERED FOR TOMORROW AM DUE TO ELEVATED ADMISSION RANDOM GLUCOSE LEVEL.
[2019-04-30] MEDS: FERROUS SO4 325 MG TABLET (FP) PO SCH (17:53)
[2019-04-30] MEDS: THIAMINE HCL 100 MG TABLET (FP) PO SCH (22:10)
[2019-04-30] MEDS: QUEtiapine FUMARATE 100 MG TABLET (FP) PO SCH (22:10)
[2019-04-30] MEDS: traZODone HCL 100 MG TABLET (FP) PO SCH (22:10)
[2019-05-01] MEDS: chlordiazePOXIDE HCL 25 MG CAPSULE PO SCH ×4 (05:28→22:04)
[2019-05-01] MEDS: METHOCARBAMOL 500 MG TABLET PO PRN (05:30)
[2019-05-01] MEDS: FERROUS SO4 325 MG TABLET (FP) PO SCH ×3 (07:15→17:21)
[2019-05-01] MEDS: PRENATAL VITAMINS W/ FOLIC ACID TABLET (FP) PO SCH (10:24)
--- NOTE | 2019-05-01 10:25 | PN ---
[facility] CIWA - CIWA Score Nausea/Vomitin-Mild Nausea/No Vomiting Muscle Tremors: 4-Moderate,w/Arms Extend Anxiety: 3 Agitation: 2 Paroxysmal Sweats: 2 Orientation: 0-Oriented Tacttile Disturbances: 0-None Auditory Disturbances: 0-None Visual Disturbances: 0-None Headache: 0-None Present CIWA-Ar Total Score: 12 S Progress Note (SOAP) Subjective: 48 years old male admitted on 04/29/19 for acute alcohol withdrawal sx management doing well with librium detox regime resting on bed tremor restlessness trouble sleep at night history of anemia treated with ferrous sulfate blind left eye Objective: 05/01/19 10:23 Vital Signs Temperature 98.4 F 05/01/19 09:34 Pulse Rate 55 L 05/01/19 09:34 Respiratory Rate 20 05/01/19 09:34 Blood Pressure 100/67 05/01/19 09:34 O2 Sat by Pulse Oximetry (%) Laboratory Last Values WBC 10.2 K/mm3 (4.0-10.0) H 04/30/19 06:00 RBC 4.51 M/mm3 (4.00-5.60) 04/30/19 06:00 Hgb 10.7 GM/dL (11.7-16.9) L 04/30/19 06:00 Hct 33.9 % (35.4-49) L 04/30/19 06:00 MCV 75.3 fl (80-96) L 04/30/19 06:00 MCH 23.8 pg (25.7-33.7) L 04/30/19 06:00 MCHC 31.6 g/dl (32.0-35.9) L 04/30/19 06:00 RDW 24.9 % (11.9-15.9) H 04/30/19 06:00 Plt Count 347 K/MM3 (134-434) D 04/30/19 06:00 MPV 9.7 fl (7.5-11.1) D 04/30/19 06:00 Sodium 141 mmol/L (136-145) 04/30/19 06:00 Potassium 4.0 mmol/L (3.5-5.1) 04/30/19 06:00 Chloride 107 mmol/L (98-107) 04/30/19 06:00 Carbon Dioxide 24 mmol/L (21-32) 04/30/19 06:00 Anion Gap 10 MMOL/L (8-16) 04/30/19 06:00 BUN 6.5 mg/dL (7-18) L 04/30/19 06:00 Creatinine 1.0 mg/dL (0.55-1.3) 04/30/19 06:00 Est GFR (CKD-EPI)AfAm 101.26 04/30/19 06:00 Est GFR (CKD-EPI)NonAf 87.37 04/30/19 06:00 Random Glucose 147 mg/dL (74-106) H 04/30/19 06:00 Fasting Glucose 84 mg/dL (74-106) 05/01/19 08:00 Calcium 8.8 mg/dL (8.5-10.1) 04/30/19 06:00 Total Bilirubin 0.5 mg/dL (0.2-1) 04/30/19 06:00 AST 75 U/L (15-37) H 04/30/19 06:00 ALT 36 U/L (13-61) 04/30/19 06:00 Alkaline Phosphatase 90 U/L (45-117) 04/30/19 06:00 Total Protein 9.2 g/dl (6.4-8.2) H 04/30/19 06:00 Albumin 3.7 g/dl (3.4-5.0) 04/30/19 06:00 RPR Titer Nonreactive (NONREACTIVE) 04/30/19 06:00 HIV 1&2 Ag/Ab, 4th Gen Non reactive (Non Reactive) 04/29/19 09:00 HIV 1&2 Antibody Screen Cancelled 04/29/19 12:50 HIV P24 Antigen Cancelled 04/29/19 12:50 lab noted discuss alcohol related ast elevation Assessment: 05/01/19 10:23 alcohol withdrawal sx alert oriented x 3 speech clearly resting on bed encourage discuss aftercare with staff Plan: continue librium detox regimen
[2019-05-01] MEDS: THIAMINE HCL 100 MG TABLET (FP) PO SCH (21:47)
[2019-05-01] MEDS: traZODone HCL 100 MG TABLET (FP) PO SCH (21:47)
[2019-05-01] MEDS: QUEtiapine FUMARATE 100 MG TABLET (FP) PO SCH (21:47)
[2019-05-02] MEDS ORDERED: chlordiazePOXIDE HCL 10 MG CAPSULE PO PRN
[2019-05-02] MEDS: chlordiazePOXIDE HCL 10 MG CAPSULE PO SCH ×4 (05:18→22:02)
[2019-05-02] MEDS: METHOCARBAMOL 500 MG TABLET PO PRN ×2 (05:18→17:37)
[2019-05-02] MEDS: FERROUS SO4 325 MG TABLET (FP) PO SCH ×3 (07:44→17:37)
[2019-05-02] MEDS: PRENATAL VITAMINS W/ FOLIC ACID TABLET (FP) PO SCH (10:09)
[2019-05-02 12:26] LABS: EPI CELLS 4.1 /HPF (0-5/HPF); HYALINE CASTS 6 /lpf (0-8); PH,URINE 6.5 (5.0-8.0); URINE APPEARANCE CLEAR; URINE BACTERIA 141.4 /hpf (NEGATIVE); URINE BILIRUBIN NEGATIVE (NEGATIVE); URINE COLOR YELLOW; URINE GLUCOSE (UA) NEGATIVE (NEGATIVE); URINE KETONE NEGATIVE (NEGATIVE); URINE LEUK ESTERASE TRACE (NEGATIVE); URINE NITRITE NEGATIVE (NEGATIVE); URINE PROTEIN NEGATIVE (NEGATIVE); URINE RBC 0 /hpf (0-4); URINE UROBILINOGEN 0.2 mg/dL (0.2-1.0); URINE WBC 8 /hpf (0-5)
[2019-05-02] MEDS ORDERED: ONDANSETRON *ODT* 4 MG TABLET SL PRN (13:58)
--- NOTE | 2019-05-02 14:02 | PN ---
[facility] CIWA - CIWA Score Nausea/Vomitin Muscle Tremors: None Anxiety: 3 Agitation: 1-Slight > Activity Paroxysmal Sweats: No Perspiration Orientation: 2-Disoriented Date<2 days Tacttile Disturbances: 0-None Auditory Disturbances: 0-None Visual Disturbances: 2-Mild Sensitivity Headache: 0-None Present CIWA-Ar Total Score: 11 S Progress Note (SOAP) Subjective: Anxious, Vomiting, Diarrhea, Poor Appetite. Objective: PATIENT A & O X 2 (UNCERTAIN ABOUT CURRENT DAY / DATE). IN NO ACUTE DISTRESS. 05/02/19 14:01 Vital Signs Temperature 97.6 F 05/02/19 13:26 Pulse Rate 68 05/02/19 13:26 Respiratory Rate 18 05/02/19 13:26 Blood Pressure 114/78 05/02/19 13:26 O2 Sat by Pulse Oximetry (%) Laboratory Tests 04/29/19 04/29/19 04/30/19 09:00 12:50 06:00 WBC 10.2 H RBC 4.51 Hgb 10.7 L Hct 33.9 L MCV 75.3 L MCH 23.8 L MCHC 31.6 L RDW 24.9 H Plt Count 347 D MPV 9.7 D Sodium Potassium Chloride Carbon Dioxide Anion Gap BUN Creatinine Est GFR (CKD-EPI)AfAm Est GFR (CKD-EPI)NonAf Random Glucose Fasting Glucose Calcium Total Bilirubin AST ALT Alkaline Phosphatase Total Protein Albumin Urine Color Urine Appearance Urine pH Ur Specific [place] Urine Protein Urine Glucose (UA) Urine Ketones Urine Blood Urine Nitrite Urine Bilirubin Urine Urobilinogen Ur Leukocyte Esterase Urine WBC (Auto) Urine RBC (Auto) Urine Casts (Auto) U Epithel Cells (Auto) Urine Bacteria (Auto) RPR Titer HIV 1&2 Ag/Ab, 4th Gen Non reactive HIV 1&2 Antibody Screen Cancelled HIV P24 Antigen Cancelled 04/30/19 04/30/19 05/01/19 06:00 06:00 08:00 WBC RBC Hgb Hct MCV MCH MCHC RDW Plt Count MPV Sodium 141 Potassium 4.0 Chloride 107 Carbon Dioxide 24 Anion Gap 10 BUN 6.5 L Creatinine 1.0 Est GFR (CKD-EPI)AfAm 101.26 Est GFR (CKD-EPI)NonAf 87.37 Random Glucose 147 H Fasting Glucose 84 Calcium 8.8 Total Bilirubin 0.5 AST 75 H ALT 36 Alkaline Phosphatase 90 Total Protein 9.2 H Albumin 3.7 Urine Color Urine Appearance Urine pH Ur Specific [place] Urine Protein Urine Glucose (UA) Urine Ketones Urine Blood Urine Nitrite Urine Bilirubin Urine Urobilinogen Ur Leukocyte Esterase Urine WBC (Auto) Urine RBC (Auto) Urine Casts (Auto) U Epithel Cells (Auto) Urine Bacteria (Auto) RPR Titer Nonreactive HIV 1&2 Ag/Ab, 4th Gen HIV 1&2 Antibody Screen HIV P24 Antigen 05/02/19 08:20 WBC RBC Hgb Hct MCV MCH MCHC RDW Plt Count MPV Sodium Potassium Chloride Carbon Dioxide Anion Gap BUN Creatinine Est GFR (CKD-EPI)AfAm Est GFR (CKD-EPI)NonAf Random Glucose Fasting Glucose Calcium Total Bilirubin AST ALT Alkaline Phosphatase Total Protein Albumin Urine Color Yellow Urine Appearance Clear Urine pH 6.5 Ur Specific [place] 1.013 Urine Protein Negative Urine Glucose (UA) Negative Urine Ketones Negative Urine Blood Negative Urine Nitrite Negative Urine Bilirubin Negative Urine Urobilinogen 0.2 Ur Leukocyte Esterase Trace Urine WBC (Auto) 8 Urine RBC (Auto) 0 Urine Casts (Auto) 6 U Epithel Cells (Auto) 4.1 Urine Bacteria (Auto) 141.4 RPR Titer HIV 1&2 Ag/Ab, 4th Gen HIV 1&2 Antibody Screen HIV P24 Antigen LABS NOTED. Assessment: 05/02/19 14:01 WITHDRAWAL SYMPTOMS. ANEMIA. Plan: CONTINUE DETOX. INCREASE DAILY PO WATER INTAKE. CONTINUE FEOSOL PO FOR ANEMIA.
[2019-05-02] MEDS: BACITRACIN 0.9 GM PACKET TP SCH (22:00)
[2019-05-02] MEDS: THIAMINE HCL 100 MG TABLET (FP) PO SCH (22:02)
[2019-05-02] MEDS: QUEtiapine FUMARATE 100 MG TABLET (FP) PO SCH (22:02)
[2019-05-02] MEDS: traZODone HCL 100 MG TABLET (FP) PO SCH (22:02)
[2019-05-03] MEDS: chlordiazePOXIDE HCL 10 MG CAPSULE PO SCH ×2 (04:52→17:10)
[2019-05-03] MEDS: METHOCARBAMOL 500 MG TABLET PO PRN ×2 (04:52→10:26)
[2019-05-03] MEDS: PRENATAL VITAMINS W/ FOLIC ACID TABLET (FP) PO SCH (10:24)
[2019-05-03] MEDS: BACITRACIN 0.9 GM PACKET TP SCH (10:27)
[2019-05-03] MEDS: FERROUS SO4 325 MG TABLET (FP) PO SCH ×2 (11:55→17:10)
--- NOTE | 2019-05-03 16:05 | PN ---
[facility] CIWA - CIWA Score Nausea/Vomitin-No Nausea/No Vomiting Muscle Tremors: 2 Anxiety: 2 Agitation: 2 Paroxysmal Sweats: 1-Minimal Palms Moist Orientation: 0-Oriented Tacttile Disturbances: 0-None Auditory Disturbances: 0-None Visual Disturbances: 0-None Headache: 0-None Present CIWA-Ar Total Score: 7 S Progress Note (SOAP) Subjective: doing well with libirum detox regimen less tremor mild restlessness discuss aftercare with staff social with peers in day room prefers [facility] Objective: 05/03/19 16:04 Vital Signs Temperature 98.4 F 05/03/19 13:04 Pulse Rate 84 05/03/19 13:04 Respiratory Rate 18 05/03/19 13:04 Blood Pressure 124/68 05/03/19 13:04 O2 Sat by Pulse Oximetry (%) Laboratory Last Values WBC 10.2 K/mm3 (4.0-10.0) H 04/30/19 06:00 RBC 4.51 M/mm3 (4.00-5.60) 04/30/19 06:00 Hgb 10.7 GM/dL (11.7-16.9) L 04/30/19 06:00 Hct 33.9 % (35.4-49) L 04/30/19 06:00 MCV 75.3 fl (80-96) L 04/30/19 06:00 MCH 23.8 pg (25.7-33.7) L 04/30/19 06:00 MCHC 31.6 g/dl (32.0-35.9) L 04/30/19 06:00 RDW 24.9 % (11.9-15.9) H 04/30/19 06:00 Plt Count 347 K/MM3 (134-434) D 04/30/19 06:00 MPV 9.7 fl (7.5-11.1) D 04/30/19 06:00 Sodium 141 mmol/L (136-145) 04/30/19 06:00 Potassium 4.0 mmol/L (3.5-5.1) 04/30/19 06:00 Chloride 107 mmol/L (98-107) 04/30/19 06:00 Carbon Dioxide 24 mmol/L (21-32) 04/30/19 06:00 Anion Gap 10 MMOL/L (8-16) 04/30/19 06:00 BUN 6.5 mg/dL (7-18) L 04/30/19 06:00 Creatinine 1.0 mg/dL (0.55-1.3) 04/30/19 06:00 Est GFR (CKD-EPI)AfAm 101.26 04/30/19 06:00 Est GFR (CKD-EPI)NonAf 87.37 04/30/19 06:00 Random Glucose 147 mg/dL (74-106) H 04/30/19 06:00 Fasting Glucose 84 mg/dL (74-106) 05/01/19 08:00 Calcium 8.8 mg/dL (8.5-10.1) 04/30/19 06:00 Total Bilirubin 0.5 mg/dL (0.2-1) 04/30/19 06:00 AST 75 U/L (15-37) H 04/30/19 06:00 ALT 36 U/L (13-61) 04/30/19 06:00 Alkaline Phosphatase 90 U/L (45-117) 04/30/19 06:00 Total Protein 9.2 g/dl (6.4-8.2) H 04/30/19 06:00 Albumin 3.7 g/dl (3.4-5.0) 04/30/19 06:00 Urine Color Yellow 05/02/19 08:20 Urine Appearance Clear 05/02/19 08:20 Urine pH 6.5 (5.0-8.0) 05/02/19 08:20 Ur Specific [place] 1.013 (1.010-1.035) 05/02/19 08:20 Urine Protein Negative (NEGATIVE) 05/02/19 08:20 Urine Glucose (UA) Negative (NEGATIVE) 05/02/19 08:20 Urine Ketones Negative (NEGATIVE) 05/02/19 08:20 Urine Blood Negative (NEGATIVE) 05/02/19 08:20 Urine Nitrite Negative (NEGATIVE) 05/02/19 08:20 Urine Bilirubin Negative (NEGATIVE) 05/02/19 08:20 Urine Urobilinogen 0.2 mg/dL (0.2-1.0) 05/02/19 08:20 Ur Leukocyte Esterase Trace (NEGATIVE) 05/02/19 08:20 Urine WBC (Auto) 8 /hpf (0-5) 05/02/19 08:20 Urine RBC (Auto) 0 /hpf (0-4) 05/02/19 08:20 Urine Casts (Auto) 6 /lpf (0-8) 05/02/19 08:20 U Epithel Cells (Auto) 4.1 /HPF (0-5/HPF) 05/02/19 08:20 Urine Bacteria (Auto) 141.4 /hpf (NEGATIVE) 05/02/19 08:20 RPR Titer Nonreactive (NONREACTIVE) 04/30/19 06:00 HIV 1&2 Ag/Ab, 4th Gen Non reactive (Non Reactive) 04/29/19 09:00 HIV 1&2 Antibody Screen Cancelled 04/29/19 12:50 HIV P24 Antigen Cancelled 04/29/19 12:50 lab noted Assessment: 05/03/19 16:05 alcohol withdrawal sx alert oriented x 3 05/03/19 16:06 S1S2 Regular Plan: continue librium detox regimen
[2019-05-03] MEDS: traZODone HCL 100 MG TABLET (FP) PO SCH (21:56)
[2019-05-03] MEDS: QUEtiapine FUMARATE 100 MG TABLET (FP) PO SCH (21:56)
[2019-05-03] MEDS: THIAMINE HCL 100 MG TABLET (FP) PO SCH (21:56)
[2019-05-04] MEDS ORDERED: chlordiazePOXIDE HCL 10 MG CAPSULE PO ONE (05:00)
[2019-05-04] MEDS: METHOCARBAMOL 500 MG TABLET PO PRN (06:00)
[2019-05-04 06:16] VITALS: BP 113/70
[2019-05-04] MEDS: FERROUS SO4 325 MG TABLET (FP) PO SCH ×2 (07:33→10:29)
[2019-05-04 09:11] VITALS: PULSE 64; TEMP 96.1
[2019-05-04] MEDS: PRENATAL VITAMINS W/ FOLIC ACID TABLET (FP) PO SCH (10:28)
[2019-05-04] MEDS: BACITRACIN 0.9 GM PACKET TP SCH (10:28)
--- NOTE | 2019-05-04 16:10 | DS ---
[facility] Detox Discharge Summary Admission Date: 04/29/19 Discharge Date: 05/04/19 - History Present History: Alcohol Dependence Additional Comments: 48 years old male admitted on 04/29/19 for acute alcohol withdrawal sx management doing well with libirum detox regimen no complication through out the detox stay alert oriented x 3 steady gait no wheezing - Physical Exam Results Vital Signs: Vital Signs Temperature 96.1 F L 05/04/19 09:11 Pulse Rate 64 05/04/19 09:11 Respiratory Rate 117 H 05/04/19 09:11 Blood Pressure 113/70 05/04/19 09:11 O2 Sat by Pulse Oximetry (%) Pertinent Admission Physical Exam Findings: alcohol withdrawal sx Laboratory Last Values WBC 10.2 K/mm3 (4.0-10.0) H 04/30/19 06:00 RBC 4.51 M/mm3 (4.00-5.60) 04/30/19 06:00 Hgb 10.7 GM/dL (11.7-16.9) L 04/30/19 06:00 Hct 33.9 % (35.4-49) L 04/30/19 06:00 MCV 75.3 fl (80-96) L 04/30/19 06:00 MCH 23.8 pg (25.7-33.7) L 04/30/19 06:00 MCHC 31.6 g/dl (32.0-35.9) L 04/30/19 06:00 RDW 24.9 % (11.9-15.9) H 04/30/19 06:00 Plt Count 347 K/MM3 (134-434) D 04/30/19 06:00 MPV 9.7 fl (7.5-11.1) D 04/30/19 06:00 Sodium 141 mmol/L (136-145) 04/30/19 06:00 Potassium 4.0 mmol/L (3.5-5.1) 04/30/19 06:00 Chloride 107 mmol/L (98-107) 04/30/19 06:00 Carbon Dioxide 24 mmol/L (21-32) 04/30/19 06:00 Anion Gap 10 MMOL/L (8-16) 04/30/19 06:00 BUN 6.5 mg/dL (7-18) L 04/30/19 06:00 Creatinine 1.0 mg/dL (0.55-1.3) 04/30/19 06:00 Est GFR (CKD-EPI)AfAm 101.26 04/30/19 06:00 Est GFR (CKD-EPI)NonAf 87.37 04/30/19 06:00 Random Glucose 147 mg/dL (74-106) H 04/30/19 06:00 Fasting Glucose 84 mg/dL (74-106) 05/01/19 08:00 Calcium 8.8 mg/dL (8.5-10.1) 04/30/19 06:00 Total Bilirubin 0.5 mg/dL (0.2-1) 04/30/19 06:00 AST 75 U/L (15-37) H 04/30/19 06:00 ALT 36 U/L (13-61) 04/30/19 06:00 Alkaline Phosphatase 90 U/L (45-117) 04/30/19 06:00 Total Protein 9.2 g/dl (6.4-8.2) H 04/30/19 06:00 Albumin 3.7 g/dl (3.4-5.0) 04/30/19 06:00 Urine Color Yellow 05/02/19 08:20 Urine Appearance Clear 05/02/19 08:20 Urine pH 6.5 (5.0-8.0) 05/02/19 08:20 Ur Specific [place] 1.013 (1.010-1.035) 05/02/19 08:20 Urine Protein Negative (NEGATIVE) 05/02/19 08:20 Urine Glucose (UA) Negative (NEGATIVE) 05/02/19 08:20 Urine Ketones Negative (NEGATIVE) 05/02/19 08:20 Urine Blood Negative (NEGATIVE) 05/02/19 08:20 Urine Nitrite Negative (NEGATIVE) 05/02/19 08:20 Urine Bilirubin Negative (NEGATIVE) 05/02/19 08:20 Urine Urobilinogen 0.2 mg/dL (0.2-1.0) 05/02/19 08:20 Ur Leukocyte Esterase Trace (NEGATIVE) 05/02/19 08:20 Urine WBC (Auto) 8 /hpf (0-5) 05/02/19 08:20 Urine RBC (Auto) 0 /hpf (0-4) 05/02/19 08:20 Urine Casts (Auto) 6 /lpf (0-8) 05/02/19 08:20 U Epithel Cells (Auto) 4.1 /HPF (0-5/HPF) 05/02/19 08:20 Urine Bacteria (Auto) 141.4 /hpf (NEGATIVE) 05/02/19 08:20 RPR Titer Nonreactive (NONREACTIVE) 04/30/19 06:00 HIV 1&2 Ag/Ab, 4th Gen Non reactive (Non Reactive) 04/29/19 09:00 HIV 1&2 Antibody Screen Cancelled 04/29/19 12:50 HIV P24 Antigen Cancelled 04/29/19 12:50 lab noted - Treatment Hospital Course: Detox Protocol Followed, Detoxed Safely, Responded well, Discharged Condition Good, Rehab Referral Accepted Patient has Accepted a Rehab Referral to: [facility] - Medication Discharge Medications: Ambulatory Orders Quetiapine Fumarate [Seroquel -] 100 mg PO HS 04/29/19 traZODone HCL [Trazodone HCl] 100 mg PO HS 04/29/19 - Diagnosis (1) Alcohol dependence with uncomplicated withdrawal Status: Acute (2) Blind left eye Status: Chronic Qualifiers: Right eye visual impairment category: right - normal vision Qualified Code( s): H54.40 - Blindness, one eye, unspecified eye (3) Hypertension Status: Chronic Qualifiers: Hypertension type: essential hypertension Qualified Code(s): I10 - Essential (primary) hypertension (4) Nicotine dependence Status: Acute Qualifiers: Nicotine product type: cigarettes Substance use status: in withdrawal Qualified Code(s): F17.213 - Nicotine dependence, cigarettes, with withdrawal (5) Substance induced mood disorder Status: Suspected - AMA Did Patient Leave Against Medical Advice: No CIWA Score - CIWA Score Nausea/Vomitin-No Nausea/No Vomiting Muscle Tremors: 2 Anxiety: 1-Mildly Anxious Agitation: 2 Paroxysmal Sweats: No Perspiration Orientation: 0-Oriented Tacttile Disturbances: 0-None Auditory Disturbances: 0-None Visual Disturbances: 0-None Headache: 0-None Present CIWA-Ar Total Score: 5
== END 2019-05-04 10:33 | disposition home or self-care (01) | DRG 775 ==
LOC: YASAS 09:05 → Y3N 11:35
PROVIDERS: ADMIT Surgery; ATTEND Surgery
PROC: HZ2ZZZZ Detoxification Services for Substance Abuse Treatment (ICD-10-PCS; principal; 2019-04-29)
DX: F10.230 Alcohol dependence with withdrawal, uncomplicated (principal); F16.20 Hallucinogen dependence, uncomplicated; F12.10 Cannabis abuse, uncomplicated; F17.213 Nicotine dependence, cigarettes, with withdrawal; F19.24 Other psychoactive substance dependence with psychoactive substance-induced mood disorder; F25.9 Schizoaffective disorder, unspecified; I10 Essential (primary) hypertension; H54.40 Blindness, one eye, unspecified eye; D64.9 Anemia, unspecified; R74.0 Nonspecific elevation of levels of transaminase and lactic acid dehydrogenase [LDH]; R73.9 Hyperglycemia, unspecified; G47.00 Insomnia, unspecified
CPT/HCPCS: 36415; 80053; 81003; 82947; 85027; 86593; 87389; 90732; G0009

== ENCOUNTER 2020-09-05 03:22 | Emergency (ER) | payer OTHER ==
[2020-09-05 03:33] VITALS: BP 162/80; PULSE 78; TEMP 98.6; BMI 31.8
== END 2020-09-05 04:19 | disposition home or self-care (01) ==
LOC: JER 03:22
DX: S31.609A Unspecified open wound of abdominal wall, unspecified quadrant with penetration into peritoneal cavity, initial encounter (principal)
CPT/HCPCS: 99282-25